=== PATIENT | male | born 1935 | race Caucasian/White ===

== ENCOUNTER 2017-09-15 11:26 | Emergency (ER) | payer MEDICARE, BC ==
[2017-09-15] MEDS ORDERED: DEXAMETHASONE 10 MG/ML VIAL PO STA (13:12)
--- NOTE | 2017-09-15 13:15 | ED Physician Documentation ---
PD HPI URI - Stated complaint Stated Complaint: CONGESTION - Chief complaint Chief Complaint: Resp - History obtained from History obtained from: Patient, Family - History of Present Illness Timing - onset: How many weeks ago (1) Timing duration: Weeks Timing details: Gradual onset, Still present Associated symptoms: Fever, Chills, Sweats, Nasal congestion, Rhinorrhea, Productive cough Improves by: Rest, Medication Worsened by: Activity Similar symptoms before: Diagnosis (pneumonia) Recently seen: Not recently seen - Additional information Additional information: 81-year-old male with a history of hepatocellular carcinoma recently treated with chemo and radiation and in remission has developed a cough and congestion. He is visiting to the area from [place] and expects to stay here until December. He has coughed up some yellow phlegm. He felt that he had the flu 1 week ago and felt ill. He felt that he was getting somewhat better a day or 2 ago and then worse again. He has begun to cough up some colored phlegm. Review of Systems Constitutional: reports: Fever, Chills, Myalgias, Fatigue Eyes: denies: Decreased vision Ears: denies: Ear pain Nose: reports: Rhinorrhea / runny nose, Congestion Throat: denies: Sore throat Cardiac: denies: Chest pain / pressure, Palpitations Respiratory: reports: Cough. denies: Dyspnea GI: denies: Abdominal Pain, Nausea, Vomiting : denies: Dysuria, Frequency PD PAST MEDICAL HISTORY - Past Medical History Past Medical History: Yes GI: Hepatitis, Other - Past Surgical History Past Surgical History: No - Present Medications Home Medications: Ambulatory Orders Medication Instructions Recorded Confirmed oxyCODONE [Roxicodone] 5 mg QID PRN 05/14/15 05/14/15 Azithromycin [Zithromax] 250 mg PO DAILY #6 tablet 09/15/17 Benzonatate [Tessalon] 100 - 200 mg PO TID PRN #20 capsule 09/15/17 - Allergies Allergies/Adverse Reactions: Allergies Allergy/AdvReac Type Severity Reaction Status Date / Time No Known Drug Allergies Allergy Verified 05/04/15 12:03 - Social History Does the pt smoke?: No Smoking Status: Never smoker Does the pt drink ETOH?: No Does the pt have substance abuse?: No - Immunizations Immunizations are current?: Yes - POLST Patient has POLST: No PD ED PE NORMAL - Vitals Vital signs reviewed: Yes (hypertensive ) - General General: Alert and oriented X 3, No acute distress, Well developed/nourished - HEENT HEENT: Atraumatic, PERRL, EOMI, Pharynx benign, Other (mild inflamation to the right TM. left is clear) - Neck Neck: Supple, no meningeal sign, No bony TTP - Cardiac Cardiac: RRR, No murmur - Respiratory Respiratory: No respiratory distress, Other (rhonchi in the left mid lung field) - Abdomen Abdomen: Soft, Non tender - Back Back: No CVA TTP, No spinal TTP - Derm Derm: Normal color, Warm and dry, No rash - Extremities Extremities: No deformity, No edema - Neuro Neuro: Alert and oriented X 3, No motor deficit, No sensory deficit, Normal speech Eye Opening: Spontaneous Motor: Obeys Commands Verbal: Oriented GCS Score: 15 - Psych Psych: Normal mood, Normal affect Results - Vitals Vitals: Vital Signs - 24 hr 09/15/17 09/15/17 11:41 13:14 Temperature 36.8 C Heart Rate 62 60 Respiratory 18 19 Rate Blood Pressure 144/62 H 143/72 H O2 Saturation 96 95 Oxygen O2 Source Room air - Rads (name of study) 2 view chest Radiology: Prelim report reviewed (Impression: No focal pneumonia. Mildly elevated right hemidiaphragm.), EMP read indepedently, See rad report Procedures - IVC sono (time) 1305 Bedside IVC sono: IVC measures (cm) (1.48), IVC collapsed c insp (cm) (0.2), Dehydration (mild) PD MEDICAL DECISION MAKING - ED course Complexity details: reviewed results, re-evaluated patient, considered differential, d/w patient, d/w family ED course: 81-year-old male with a bimodal illness appears to have improved from his initial URI and now is worse. On examination he does have right otitis. I suspect this is a secondary bacterial infection. He is administered dexamethasone orally and an x-ray of his chest is obtained with a prior history of pneumonia and rhonchi on exam. Departure - Departure Disposition: 01 Home, Self Care Clinical Impression: Otitis media Qualifiers: Otitis media type: suppurative Chronicity: acute Laterality: right Recurrence: not specified as recurrent Spontaneous tympanic membrane rupture: without spontaneous rupture Qualified Code(s): H66.001 - Acute suppurative otitis media without spontaneous rupture of ear drum, right ear Condition: Stable Instructions: ED Otitis Media Acute Adult Follow-Up: Your, doctor [Other] Prescriptions: Azithromycin [Zithromax] 250 mg PO DAILY #6 tablet Benzonatate [Tessalon] 100 - 200 mg PO TID PRN #20 capsule PRN Reason: Cough
[2017-09-15] MEDS ORDERED: CHERRY SYRUP 10 ML UDC PO ONE (13:22)
--- NOTE | 2017-09-15 13:35 | XRAY Report ---
EXAM: CHEST RADIOGRAPHY EXAM DATE: 09/15/2017 01:29 PM. CLINICAL HISTORY: Dry cough for one week COMPARISON: None. TECHNIQUE: 2 views. FINDINGS: Lungs/Pleura: The lungs are clear. There is elevation of the right diaphragm with right lung volume l oss. No pleural effusion or pneumothorax. Mediastinum: Previous aortic valve surgery noted. There is moderate calcification of the aortic arch. The heart size is normal. Other: Old right healed clavicle fracture noted. There are findings of previous right shoulder surger y. There are surgical clips in the right upper quadrant of the abdomen. IMPRESSION: No focal pneumonia. Mildly elevated right diaphragm. [facility] Referring Provider Line: [phone] SITE ID: [id number]
--- NOTE | 2017-09-15 13:35 | XRAY Preliminary Report ---
Exam: XR CHEST 2 VIEW X-RAY IMPRESSION: No focal pneumonia. Mildly elevated right diaphragm. [facility] SITE ID: [id number]
[2017-09-15 14:29] VITALS: BP 124/66
== END 2017-09-15 14:38 | disposition home or self-care (01) ==
LOC: ED 11:26
DX: H66.001 Acute suppurative otitis media without spontaneous rupture of ear drum, right ear (principal); Z85.05 Personal history of malignant neoplasm of liver; K75.9 Inflammatory liver disease, unspecified
CPT/HCPCS: 71046; 99283; A9270

== ENCOUNTER 2017-09-21 08:00 | Outpatient (CLI) | payer MEDICARE, BC ==
[2017-09-21 12:30] LABS: ALBUMIN 3.3 g/dL (3.2-5.5); ALBUMIN/GLOBULIN RATIO 1.1 (1.0-2.2); BILIRUBIN,TOTAL 1.6 mg/dL (0.2-1.0); CALCIUM 8.6 mg/dL (8.5-10.3); CREATININE 0.7 mg/dL (0.6-1.2); TOTAL PROTEIN 6.3 g/dL (6.7-8.2)
== END 2017-09-21 08:01 | disposition home or self-care (01) ==
LOC: LAB 08:00
PROVIDERS: ATTEND Family Medicine
DX: K74.69 Other cirrhosis of liver (principal)
CPT/HCPCS: 36415; 80053

== ENCOUNTER 2017-09-22 22:46 | Outpatient (CLI) | payer MEDICARE, BC | END 2017-09-22 22:47 | disposition critical access hospital (66) | LOC: EMS 22:46 | PROVIDERS: ATTEND Surgery | DX: R06.00 Dyspnea, unspecified (principal) | CPT/HCPCS: A0425; A0427 ==

== ENCOUNTER 2017-09-22 23:12 | Emergency (ER) | payer MEDICARE, BC ==
--- NOTE | 2017-09-22 23:36 | ED Physician Documentation ---
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 Despite this, he felt well until he later went into his house when he began to develop dyspnea, cough, chills, dizziness, felling "flush". 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 He was T+R from this ED earlier this month for very similar symptoms with same circumstances (breathed in fumes during a welding project). Review of Systems Constitutional: reports: Chills, Myalgias, Fatigue. denies: Fever Ears: reports: Reviewed and negative Cardiac: reports: Reviewed and negative Respiratory: reports: Dyspnea, Cough GI: reports: Abdominal Pain (RUQ). denies: Nausea, Vomiting : denies: Dysuria, Frequency PD PAST MEDICAL HISTORY - Past Medical History Past Medical History: Yes GI: Hepatitis, Other - Past Surgical History Past Surgical History: No - Present Medications Home Medications: Ambulatory Orders Medication Instructions Recorded Confirmed Aspirin [Aspirin EC] 81 mg PO DAILY 09/22/17 09/22/17 Lactulose 240 ml PO TID 09/22/17 09/22/17 Nadolol 20 mg PO DAILY 09/22/17 09/22/17 rifAXIMin [Xifaxan] 550 mg PO BID 09/22/17 09/22/17 Albuterol Sulf [Ventolin Hfa 1 - 2 puffs INH Q4HR PRN #1 inhaler 09/23/17 Inhaler] Amlodipine Besylate [Norvasc] 2.5 mg PO DAILY 09/23/17 09/23/17 - Allergies Allergies/Adverse Reactions: Allergies Allergy/AdvReac Type Severity Reaction Status Date / Time No Known Drug Allergies Allergy Verified 09/22/17 23:20 - Living Situation Living Arrangement: reports: At home - Social History Does the pt smoke?: No Smoking Status: Never smoker Does the pt drink ETOH?: No Does the pt have substance abuse?: No - Immunizations Immunizations are current?: Yes - POLST Patient has POLST: No PD ED PE NORMAL - Vitals Vital signs reviewed: Yes - General General: Alert and oriented X 3, No acute distress, Well developed/nourished - HEENT HEENT: Ears normal, Moist mucous membranes, Pharynx benign - Neck Neck: Supple, no meningeal sign - Cardiac Cardiac: RRR, No murmur, No gallop, No rub - Respiratory Respiratory: No respiratory distress, Clear bilaterally - Abdomen Abdomen: Soft, Non tender - Back Back: No CVA TTP - Derm Derm: Normal color, Warm and dry, No rash - Extremities Extremities: No edema - Neuro Neuro: Alert and oriented X 3 Results - Vitals Vitals: Vital Signs - 24 hr 09/22/17 09/23/17 09/23/17 23:12 02:05 02:40 Temperature 37.9 C H 37.5 C Heart Rate 113 H 84 87 Respiratory 20 16 21 Rate Blood Pressure 152/84 H 154/54 H O2 Saturation 96 96 Oxygen O2 Source Room air - EKG (time done) No standard instances Rate: Rate (enter#) (108) Rhythm: NSR [place]: LAD Intervals: Normal IA QRS: LVH Ischemia: Normal ST segments - Labs Labs: Laboratory Tests 09/23/17 09/23/17 09/23/17 00:10 00:10 00:10 WBC 11.1 H RBC 4.42 L Hgb 14.4 Hct 42.0 MCV 95.0 H MCH 32.6 H MCHC 34.3 RDW 14.3 Plt Count 54 L MPV 10.1 Neut # 9.4 H Lymph # 0.7 L [place] # 0.7 Eos # 0.3 Baso # 0.1 Absolute Nucleated RBC 0.01 Nucleated RBC % 0.1 Platelet Estimate DECREASED (<130,000) Platelet Morphology 1+ GIANT PLATELETS Sodium 137 Potassium 3.7 Chloride 107 Carbon Dioxide 15 L Anion Gap 15.0 H BUN 16 Creatinine 0.4 L Estimated GFR (MDRD) 208 Glucose 93 Calcium 8.8 Total Bilirubin 1.4 H AST 59 H ALT 44 Alkaline Phosphatase 116 B-Natriuretic Peptide 50 Total Protein 6.7 Albumin 3.3 Globulin 3.4 Albumin/Globulin Ratio 1.0 Lipase 52 H Influenza A (Rapid) Influenza B (Rapid) Influenza Types A,B Ag 09/23/17 00:30 WBC RBC Hgb Hct MCV MCH MCHC RDW Plt Count MPV Neut # Lymph # [place] # Eos # Baso # Absolute Nucleated RBC Nucleated RBC % Platelet Estimate Platelet Morphology Sodium Potassium Chloride Carbon Dioxide Anion Gap BUN Creatinine Estimated GFR (MDRD) Glucose Calcium Total Bilirubin AST ALT Alkaline Phosphatase B-Natriuretic Peptide Total Protein Albumin Globulin Albumin/Globulin Ratio Lipase Influenza A (Rapid) Negative Influenza B (Rapid) Negative Influenza Types A,B Ag - - Rads (name of study) chest xray Radiology: Prelim report reviewed, See rad report PD MEDICAL DECISION MAKING - ED course Complexity details: reviewed old records, reviewed results, re-evaluated patient , considered differential, d/w patient ED course: Patient reported modest improvement with albuterol neb (not clear if it helped much, but will rx albuterol he can try if symptoms recur). W/U is unremarkable for acute process, vital signs stable, NAD, speaks in full sentences and lungs are CTA bilaterally Departure - Departure Disposition: 01 Home, Self Care Clinical Impression: Upper respiratory tract infection Condition: Good Instructions: ED URI Viral Prescriptions: Albuterol Sulf [Ventolin Hfa Inhaler] 1 - 2 puffs INH Q4HR PRN #1 inhaler PRN Reason: Shortness Of Air/Wheezing Discharge Date/Time: 09/23/17 03:06
[2017-09-23 00:27] LABS: BASOPHILS # (AUTO) 0.1 10^3/uL (0.0-0.1); BASOPHILS % (AUTO) 1.2 %; EOSINOPHILS # (AUTO) 0.3 10^3/uL (0.0-0.7); EOSINOPHILS % (AUTO) 2.3 %; HGB - HEMOGLOBIN 14.4 g/dL (14.0-18.0); LYMPHOCYTES # (AUTO) 0.7 10^3/uL (1.5-3.5); LYMPHOCYTES % (AUTO) 5.9 %; MEAN CORPUSCULAR HEMOGLOBIN 32.6 pg (27.0-31.0); MEAN CORPUSCULAR HGB CONC 34.3 g/dL (32.0-36.0); MEAN PLATELET VOLUME 10.1 fL (7.4-11.4); MONOCYTES # (AUTO) 0.7 10^3/uL (0.0-1.0); MONOCYTES % (AUTO) 6.1 %; NEUTROPHILS # (AUTO) 9.4 10^3/uL (1.5-6.6); NEUTROPHILS % (AUTO) 84.5 %; PLT - PLATELET COUNT 54 10^3/uL (130-450); RED BLOOD COUNT 4.42 10^6/uL (4.70-6.10); RED CELL DISTRIBUTION WIDTH 14.3 % (12.0-15.0); WHITE BLOOD COUNT 11.1 x10^3/uL (4.8-10.8)
[2017-09-23 00:33] LABS: ALBUMIN 3.3 g/dL (3.2-5.5); BILIRUBIN,TOTAL 1.4 mg/dL (0.2-1.0); CALCIUM 8.8 mg/dL (8.5-10.3); CREATININE 0.4 mg/dL (0.6-1.2); TOTAL PROTEIN 6.7 g/dL (6.7-8.2)
[2017-09-23 00:44] LABS: PLATELET ESTIMATE, MANUAL DECREASED (<130,000) (NORMAL); PLATELET MORPHOLOGY 1+ GIANT PLATELETS (NORMAL)
--- NOTE | 2017-09-23 01:07 | XRAY Preliminary Report ---
Exam: XR CHEST 2 VIEW X-RAY IMPRESSION: Stable appearance of the chest without acute cardiopulmonary abnormality. [facility] SITE ID: [id number]
--- NOTE | 2017-09-23 01:09 | XRAY Report ---
EXAM: CHEST RADIOGRAPHY EXAM DATE: 09/23/2017 12:27 AM. CLINICAL HISTORY: Cough, dyspnea. COMPARISON: 09/15/2017. TECHNIQUE: 2 views. FINDINGS: Lungs/Pleura: No focal opacities evident. No pleural effusion. No pneumothorax. Normal volumes. Mediastinum: Cardiac silhouette is within normal limits when accounting for lung volumes and techniq ue. Aortic valve stent graft noted. Moderate calcific aortic atherosclerosis. Other: Medium-sized hiatal hernia. There is right hemidiaphragm eventration/elevation. Bone anchors n oted within the right humeral head. Moderate right shoulder degenerative change. Multiple right upper quadrant clips from prior partial hepatectomy. IMPRESSION: Stable appearance of the chest without acute cardiopulmonary abnormality. [facility] Referring Provider Line: [phone] SITE ID: [id number]
[2017-09-23] MEDS ORDERED: ALBUTEROL NEB 2.5 MG/3 ML INH STA (01:46)
[2017-09-23 02:41] VITALS: BP 154/54
== END 2017-09-23 03:06 | disposition home or self-care (01) ==
LOC: EDUNIT# → ED 23:12
DX: J06.9 Acute upper respiratory infection, unspecified (principal); R00.0 Tachycardia, unspecified; K75.9 Inflammatory liver disease, unspecified
CPT/HCPCS: 36415; 71046; 80053; 83690; 83880; 85025; 87275; 87276; 93005; 94640; 99283; 99284; J7613

== ENCOUNTER 2018-03-04 10:34 | Emergency (ER) | payer MEDICARE, BC ==
[2018-03-04] MEDS ORDERED: DEXAMETHASONE 10 MG/ML VIAL IVP STA (11:19)
[2018-03-04 13:03] VITALS: BP 126/71
--- NOTE | 2018-03-04 13:23 | ED Physician Documentation ---
PD HPI SKIN - Stated complaint Stated Complaint: ALLERGIC REACTION - Chief complaint Chief Complaint: Resp - History obtained from History obtained from: Patient - History of Present Illness Timing - onset: Yesterday Timing - details: Gradual onset Location: Face, RUE, LUE Quality / character: Itchy, Burning, Discolored, Swelling Associated symptoms: Facial swelling Contributing factors: Other (Exposed to kimberley and thistles.) Similar symptoms before: Has not had sx before Recently seen: Clinic (The patient was sent here from the [facility] and [place], where he had been given oral Benadryl.) - Additional information Additional information: The patient is an 82-year-old male who was chopping thistles and kimberley 2 days ago. He noticed swelling of his hands with associated itching yesterday, with increased swelling, including his face today, with associated redness. He denies cough, shortness of breath, headache, nausea or vomiting. He denies history of similar symptoms in the past. He was initially seen at the [facility] in [place], and was sent here for further evaluation and treatment. Review of Systems Constitutional: denies: Fever Eyes: denies: Irritation Nose: denies: Congestion Throat: denies: Sore throat Cardiac: denies: Chest pain / pressure Respiratory: denies: Dyspnea, Cough GI: denies: Abdominal Pain, Nausea, Vomiting : denies: Dysuria Skin: reports: Rash Musculoskeletal: reports: Extremity swelling (hands). denies: Neck pain, Back pain Neurologic: denies: Focal weakness, Numbness, Headache PD PAST MEDICAL HISTORY - Past Medical History Past Medical History: Yes Cardiovascular: Hypertension, High cholesterol, Coronary artery disease, [place] GI: Hepatitis, Other Other Past Medical History: liver CA with chemo/radiation 2014 - Past Surgical History Past Surgical History: Yes General: Liver surgery Ortho: Knee replacement, Shoulder arthroplasty, Carpal Tunnel surgery Cardiovascular: Coronary stent, Valve replacement HEENT: Cataracts, Detached retina repair - Present Medications Home Medications: Ambulatory Orders Medication Instructions Recorded Confirmed Aspirin [Aspirin EC] 81 mg PO DAILY 09/22/17 09/22/17 Lactulose 240 ml PO TID 09/22/17 09/22/17 Nadolol 20 mg PO DAILY 09/22/17 09/22/17 rifAXIMin [Xifaxan] 550 mg PO BID 09/22/17 09/22/17 Amlodipine Besylate [Norvasc] 2.5 mg PO DAILY 09/23/17 09/23/17 diphenhydrAMINE [Benadryl] 50 mg PO ONCE 03/04/18 03/04/18 predniSONE [Deltasone] 20 mg PO DAILY #10 tablet 03/04/18 - Allergies Allergies/Adverse Reactions: Allergies Allergy/AdvReac Type Severity Reaction Status Date / Time No Known Drug Allergies Allergy Verified 03/04/18 10:55 - Social History Does the pt smoke?: No Smoking Status: Never smoker Does the pt drink ETOH?: No Does the pt have substance abuse?: No - Immunizations Immunizations are current?: Yes - POLST Patient has POLST: No PD ED PE NORMAL - Vitals Vital signs reviewed: Yes (normal) - General General: Alert and oriented X 3, Well developed/nourished - HEENT HEENT: Atraumatic, EOMI, Ears normal, Moist mucous membranes, Pharynx benign, Other (There is generalized facial erythema and slight swelling.) - Neck Neck: Supple, no meningeal sign, No adenopathy, No JVD - Cardiac Cardiac: RRR - Respiratory Respiratory: No respiratory distress, Clear bilaterally - Abdomen Abdomen: Soft, Non tender - Back Back: No CVA TTP - Derm Derm: Other (Mild swelling of the hands bilaterally with slight erythema that extends up the forearms. There is no erythema, rash, or swelling of the lower extremities or the upper arms.) - Extremities Extremities: No tenderness to palpate, No calf tenderness / cord - Neuro Neuro: Alert and oriented X 3, No motor deficit, No sensory deficit Results - Vitals Vitals: Oxygen O2 Source Room air PD MEDICAL DECISION MAKING - ED course Complexity details: re-evaluated patient, considered differential, d/w patient, d/w family ED course: The patient's presentation is most consistent with localized reaction to kimberley. This does not appear to be a systemic allergic reaction, with no respiratory involvement. The only involved areas are the exposed areas of skin. Treatment in the emergency department included administration of dexamethasone 10 mg IV. The patient was observed in the emergency department for 2 hours over which time his symptoms improved. I discussed with him and his the expected course of illness, symptomatic treatment and outpatient follow-up, as well as potentially worrisome signs or symptoms that should prompt reevaluation in the emergency department. He is being discharged with prescription for prednisone. - Sepsis Event Vital Signs: Oxygen O2 Source Room air Departure - Departure Disposition: 01 Home, Self Care Clinical Impression: Allergic reaction Qualifiers: Encounter type: initial encounter Qualified Code(s): T78.40XA - Allergy, unspecified, initial encounter Condition: Stable Instructions: ED Allergic Reaction General Other Prescriptions: predniSONE [Deltasone] 20 mg PO DAILY #10 tablet Comments: Take prednisone daily as prescribed. You can use Benadryl, up to 50 mg 3 times daily if needed for itching. Follow up with your primary physician or return to the emergency department if you develop increasing swelling, itching, or shortness of breath despite the above medication. Discharge Date/Time: 03/04/18 13:42
== END 2018-03-04 13:42 | disposition home or self-care (01) ==
LOC: ED 10:34
DX: T78.40XA Allergy, unspecified, initial encounter (principal); X58.XXXA Exposure to other specified factors, initial encounter; I10 Essential (primary) hypertension; E78.00 Pure hypercholesterolemia, unspecified; I25.10 Atherosclerotic heart disease of native coronary artery without angina pectoris; I25.2 Old myocardial infarction; Z85.05 Personal history of malignant neoplasm of liver; Z79.82 Long term (current) use of aspirin
CPT/HCPCS: 96374; 99283

== ENCOUNTER 2018-11-01 10:50 | Outpatient (CLI) | payer MEDICARE, BC ==
[2018-11-01 11:18] LABS: CREATININE 0.6 mg/dL (0.6-1.2)
== END 2018-11-01 10:51 | disposition home or self-care (01) ==
LOC: LAB 10:50
DX: K74.69 Other cirrhosis of liver (principal); Z85.05 Personal history of malignant neoplasm of liver
CPT/HCPCS: 36415; 82565

== ENCOUNTER 2018-12-13 11:57 | Emergency (ER) | payer MEDICARE, BC ==
--- NOTE | 2018-12-13 14:19 | XRAY Report ---
Reason: fall. pain in ribs Procedure Date: 12/13/2018 Accession Number: [id number] / [id number] Procedure: XR - Ribs w/PA Chest RT CPT Code: FULL RESULT: EXAM: RIGHT RIB RADIOGRAPHY EXAM DATE: 12/13/2018 02:03 PM. CLINICAL HISTORY: Fall. Pain in ribs. COMPARISON: CHEST 2 VIEW 09/23/2017 12:13 AM CHEST 2 VIEW 09/15/2017 1:19 PM. TECHNIQUE: 1 view of the chest and 2 views of the ribs. FINDINGS: Bones: No displaced rib fracture appreciated. Lungs: No focal opacities. No pneumothorax. No pleural effusions. Mediastinum: Heart size, mediastinal and hilar contours are unchanged. Prior aortic valve repair. Moderate to large hiatal hernia again noted. Clips noted in the right upper quadrant from prior surgery. Stable focal eventration of the right hemidiaphragm. 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 IMPRESSION: No appreciable acute rib fractures. Stable exam findings as described above. [facility]
--- NOTE | 2018-12-13 14:38 | ED Physician Documentation ---
PD HPI TRUNK INJURY - Stated complaint Stated Complaint: RIB INJ - Chief complaint Chief Complaint: Trauma Ch/Bk - History obtained from History obtained from: Patient - History of Present Illness Location: Anterior chest, Right chest Type of injury: Fall Timing - onset: How many days ago (2) Timing - duration: Days (2) Timing - details: Abrupt onset, Still present Quality: Pain, Sharp, Similar to prior episodes Improved by: Rest, Immobilization Worsened by: Moving, Palpating Associated symtptoms: No: Weakness, Numbness, Tingling, Swelling, Discoloration, Feel faint, Syncope Contributing factors: No: Anticoagulated Where injury occured: Home Similar symptoms before: Diagnosis (rib fracture) Recently seen: Not recently seen - Additional information Additional information: 83-year-old male who is visiting here from [place] and has a place here on [address] [facility] was leading his horse when the horse bolted and pulled him over and he landed with his right elbow tucked into his chest. He is having some pain in the right anterior chest wall that is worse with inspiration and he was quite uncomfortable last night. Review of Systems Constitutional: denies: Fever Eyes: denies: Decreased vision Ears: denies: Ear pain Nose: denies: Congestion Throat: denies: Sore throat Cardiac: reports: Chest pain / pressure. denies: Palpitations, Pedal edema, Calf pain Respiratory: denies: Dyspnea, Cough, Wheezing GI: denies: Abdominal Pain, Nausea, Vomiting : denies: Dysuria, Frequency PD PAST MEDICAL HISTORY - Past Medical History Cardiovascular: Hypertension, High cholesterol, Coronary artery disease, [place] GI: Hepatitis, Other - Past Surgical History Past Surgical History: Yes General: Liver surgery Ortho: Knee replacement, Shoulder arthroplasty, Carpal Tunnel surgery Cardiovascular: Coronary stent, Valve replacement HEENT: Cataracts, Detached retina repair - Present Medications Home Medications: Ambulatory Orders Medication Instructions Recorded Confirmed Aspirin [Aspirin EC] 81 mg PO DAILY 09/22/17 09/22/17 Lactulose 240 ml PO TID 09/22/17 09/22/17 Nadolol 20 mg PO DAILY 09/22/17 09/22/17 rifAXIMin [Xifaxan] 550 mg PO BID 09/22/17 09/22/17 Amlodipine Besylate [Norvasc] 2.5 mg PO DAILY 09/23/17 09/23/17 diphenhydrAMINE [Benadryl] 50 mg PO ONCE 03/04/18 03/04/18 predniSONE [Deltasone] 20 mg PO DAILY #10 tablet 03/04/18 Oxycodone HCl/Acetaminophen 1 - 2 each PO Q6H PRN #20 tablet 12/13/18 [Percocet 5-325 mg Tablet] - Allergies Allergies/Adverse Reactions: Allergies Allergy/AdvReac Type Severity Reaction Status Date / Time No Known Drug Allergies Allergy Verified 12/13/18 12:38 - Social History Does the pt smoke?: No Smoking Status: Never smoker Does the pt drink ETOH?: No Does the pt have substance abuse?: No - Immunizations Immunizations are current?: Yes - POLST Patient has POLST: No PD ED PE NORMAL - Vitals Vital signs reviewed: Yes (normal ) - General General: Alert and oriented X 3, No acute distress, Well developed/nourished - HEENT HEENT: Atraumatic, PERRL, EOMI - Neck Neck: Supple, no meningeal sign, No bony TTP - Cardiac Cardiac: RRR, No murmur - Respiratory Respiratory: No respiratory distress, Clear bilaterally, Other (There is specific point tenderness to the right anterior chest wall without crepitance. ) - Abdomen Abdomen: Soft, Non tender - Back Back: No CVA TTP, No spinal TTP - Derm Derm: Normal color, Warm and dry, No rash - Extremities Extremities: No deformity, No edema - Neuro Neuro: Alert and oriented X 3, primary special education teacher 2-12 intact, No motor deficit, No sensory deficit, Normal speech Eye Opening: Spontaneous Motor: Obeys Commands Verbal: Oriented GCS Score: 15 - Psych Psych: Normal mood, Normal affect Results - Vitals Vitals: Vital Signs - 24 hr 12/13/18 12:36 Temperature 36.8 C Heart Rate 54 L Respiratory 18 Rate Blood Pressure 114/53 L O2 Saturation 97 Oxygen O2 Source Room air - Rads (name of study) PA chest and ribs Radiology: Prelim report reviewed (Impression: No appreciable acute rib fractures. Stable exam findings as described above.), EMP read indepedently, See rad report PD MEDICAL DECISION MAKING - ED course Complexity details: considered differential, d/w patient, d/w family ED course: 83-year-old male with a chest wall contusion has no evidence of fracture he is administered dexamethasone we will place him on some oxycodone. Departure - Departure Disposition: 01 Home, Self Care Clinical Impression: Chest wall contusion Qualifiers: Encounter type: initial encounter Laterality: right Qualified Code(s): S20.211A - Contusion of right front wall of thorax, initial encounter Condition: Stable Instructions: ED Contusion Vs Minor Fx Rib Follow-Up: PEÑA MILAN MD [Primary Care Provider] - Prescriptions: Oxycodone HCl/Acetaminophen [Percocet 5-325 mg Tablet] 1 - 2 each PO Q6H PRN #20 tablet PRN Reason: pain
[2018-12-13] MEDS ORDERED: DEXAMETHASONE 10 MG/ML VIAL PO STA (14:47)
[2018-12-13 15:04] VITALS: BP 127/67
== END 2018-12-13 15:06 | disposition home or self-care (01) ==
LOC: ED 11:57
DX: S20.211A Contusion of right front wall of thorax, initial encounter (principal); W55.12XA Struck by horse, initial encounter; W19.XXXA Unspecified fall, initial encounter; I10 Essential (primary) hypertension; I25.10 Atherosclerotic heart disease of native coronary artery without angina pectoris; I25.2 Old myocardial infarction; E78.00 Pure hypercholesterolemia, unspecified; K75.9 Inflammatory liver disease, unspecified; Z96.659 Presence of unspecified artificial knee joint; Z95.5 Presence of coronary angioplasty implant and graft; Z95.2 Presence of prosthetic heart valve; Z79.82 Long term (current) use of aspirin
CPT/HCPCS: 99283

== ENCOUNTER 2018-12-29 08:59 | Outpatient (CLI) | payer MEDICARE, BC ==
[2018-12-29 10:45] LABS: ALBUMIN 3.5 g/dL (3.2-5.5); ALBUMIN/GLOBULIN RATIO 1.1 (1.0-2.2); ALKALINE PHOSPHATASE 112 IU/L (42-121); ALT ALANINE AMINOTRANSFERASE 31 IU/L (10-60); AST ASPARTATE AMINOTRANSFERASE 40 IU/L (10-42); BILIRUBIN,TOTAL 1.1 mg/dL (0.2-1.0); BUN - BLOOD UREA NITROGEN 18 mg/dL (6-20); CALCIUM 9.6 mg/dL (8.5-10.3); CARBON DIOXIDE - CO2 25 mmol/L (21-32); CHLORIDE 108 mmol/L (101-111); CHOL/HDL RATIO 4.5 (<5.0); CHOLESTEROL 232 mg/dL; CREATININE 0.7 mg/dL (0.6-1.2); GFR - MDRD 108 (>89); GLUCOSE 97 mg/dL (70-100); HDL CHOLESTEROL 52 mg/dL; LDL CHOLESTEROL,CALCULATED 166 mg/dL; LDL/HDL RATIO 3.2 (<3.6); SODIUM 141 mmol/L (135-145); TOTAL PROTEIN 6.7 g/dL (6.7-8.2); VLDL CHOLESTEROL 14 mg/dL
== END 2018-12-29 09:00 | disposition home or self-care (01) ==
LOC: LAB.F 08:59
PROVIDERS: ATTEND Internal Medicine Cardiovascular Disease
DX: E78.2 Mixed hyperlipidemia (principal); I10 Essential (primary) hypertension
CPT/HCPCS: 36415; 80053; 80061; 83721

== ENCOUNTER 2019-03-30 11:26 | Emergency (ER) | payer MEDICARE, BC ==
[2019-03-30] MEDS ORDERED: predniSONE 20 MG TABLET PO STA (12:35)
[2019-03-30] MEDS ORDERED: diphenhydrAMINE 25 MG CAPSULE PO STA (12:36)
--- NOTE | 2019-03-30 12:57 | ED Physician Documentation ---
History of Present Illness - Stated complaint Stated Complaint: BEE STING - Chief complaint Chief Complaint: Allergic Rx - History obtained from History obtained from: Patient, Family - History of Present Illness Timing: Today Pain level max: 0 Pain level now: 0 - Additonal information Additional information: 83-year-old male stung by a wasp on the left flank. States his arm started to swell and he uses epinephrine pen. No difficulty breathing. No throat swelling. Now feels slightly lightheaded. Has not taken any Benadryl. No steroids. Has had similar reactions in the past. This occurred approximately 2 hours ago. Better with the EpiPen. Nothing makes it worse. Review of Systems Constitutional: denies: Fever, Chills GI: denies: Vomiting Skin: denies: Rash Musculoskeletal: denies: Neck pain, Back pain Neurologic: denies: Headache PD PAST MEDICAL HISTORY - Past Medical History Cardiovascular: Hypertension, High cholesterol, Coronary artery disease, [place] GI: Hepatitis, Other - Past Surgical History Past Surgical History: Yes General: Liver surgery Ortho: Knee replacement, Shoulder arthroplasty, Carpal Tunnel surgery Cardiovascular: Coronary stent, Valve replacement HEENT: Cataracts, Detached retina repair - Present Medications Home Medications: Ambulatory Orders Medication Instructions Recorded Confirmed Aspirin [Aspirin EC] 81 mg PO DAILY 09/22/17 09/22/17 Lactulose 240 ml PO TID 09/22/17 09/22/17 Nadolol 20 mg PO DAILY 09/22/17 09/22/17 rifAXIMin [Xifaxan] 550 mg PO BID 09/22/17 09/22/17 Amlodipine Besylate [Norvasc] 2.5 mg PO DAILY 09/23/17 09/23/17 diphenhydrAMINE [Benadryl] 50 mg PO ONCE 03/04/18 03/04/18 predniSONE [Deltasone] 20 mg PO DAILY #10 tablet 03/04/18 Oxycodone HCl/Acetaminophen 1 - 2 each PO Q6H PRN #20 tablet 12/13/18 [Percocet 5-325 mg Tablet] EPINEPHrine [Epinephrine] 0.3 mg IJ ONCE PRN #1 auto.injct 03/30/19 predniSONE [Prednisone] 20 mg PO DAILY #3 tablet 03/30/19 - Allergies Allergies/Adverse Reactions: Allergies Allergy/AdvReac Type Severity Reaction Status Date / Time Wasp Allergy Anaphylaxis Uncoded 03/30/19 11:41 - Social History Does the pt smoke?: No Smoking Status: Never smoker Does the pt drink ETOH?: No Does the pt have substance abuse?: No - Immunizations Immunizations are current?: Yes - POLST Patient has POLST: No PD ED PE NORMAL - Vitals Vital signs reviewed: Yes - General General: Alert and oriented X 3, No acute distress - HEENT HEENT: Moist mucous membranes, Pharynx benign - Neck Neck: Supple, no meningeal sign - Cardiac Cardiac: RRR - Respiratory Respiratory: No respiratory distress, Clear bilaterally, Other (No stridor. No wheezing) - Abdomen Abdomen: Soft, Non tender, Non distended, Other (Localized allergic reaction to the left flank, approximately 20 x 15 cm erythematous area.) - Derm Derm: Warm and dry - Neuro Neuro: Alert and oriented X 3 Results - Vitals Vitals: Vital Signs - 24 hr 03/30/19 03/30/19 03/30/19 11:37 12:00 13:20 Temperature 36.9 C 36.2 C L Heart Rate 56 L 56 L 53 L Respiratory 18 16 20 Rate Blood Pressure 154/119 H 112/64 126/59 L O2 Saturation 95 96 95 Oxygen O2 Source Room air PD MEDICAL DECISION MAKING - ED course Complexity details: re-evaluated patient, considered differential, d/w patient ED course: Patient with significant localized allergic reaction to a wasp sting. Will refill his EpiPen for him. Will place on steroids for home. No evidence of anaphylaxis. Patient and family counseled regarding signs and symptoms for which I believe and urgent re-evaluation would be necessary. Patient with good understanding of and agreement to plan and is comfortable going home at this time This document was made in part using voice recognition software. While efforts are made to proofread this document, sound alike and grammatical errors may occur. Departure - Departure Disposition: 01 Home, Self Care Clinical Impression: Wasp sting Qualifiers: Encounter type: initial encounter Injury intent: undetermined intent Qualified Code(s): T63.464A - Toxic effect of venom of wasps, undetermined, initial encounter Condition: Good Instructions: ED Bite Sting Insect Gen Allergic React Follow-Up: PEÑA MILAN MD [Primary Care Provider] - Within 3 Days Prescriptions: EPINEPHrine [Epinephrine] 0.3 mg IJ ONCE PRN #1 auto.injct PRN Reason: Anaphylaxis predniSONE [Prednisone] 20 mg PO DAILY #3 tablet Comments: If you need to use the epinephrine pen, you still need to be seen at the nearest emergency department. You can also use Benadryl for itching. Return if you worsen. Follow up with your doctor for further care. Discharge Date/Time: 03/30/19 13:20
[2019-03-30 13:20] VITALS: BP 126/59
== END 2019-03-30 13:20 | disposition home or self-care (01) ==
LOC: ED 11:26
DX: T63.461A Toxic effect of venom of wasps, accidental (unintentional), initial encounter (principal); M79.89 Other specified soft tissue disorders; I10 Essential (primary) hypertension
CPT/HCPCS: 99282; 99284; A9270; J7512

== ENCOUNTER 2019-08-08 07:00 | Outpatient (CLI) | payer MEDICARE, BC | END 2019-08-08 23:59 | disposition home or self-care (01) | LOC: LAB.R 07:00 | PROVIDERS: ATTEND Registered Nurse | DX: Z01.812 Encounter for preprocedural laboratory examination (principal) | CPT/HCPCS: 87640 ==

== ENCOUNTER 2019-08-08 15:14 | Outpatient (CLI) | payer MEDICARE, BC ==
[2019-08-08 17:43] LABS: BASOPHILS % (AUTO) 0.7 %; EOSINOPHILS # (AUTO) 0.3 10^3/uL (0.0-0.7); EOSINOPHILS % (AUTO) 6.6 %; HGB - HEMOGLOBIN 16.3 g/dL (14.0-18.0); LYMPHOCYTES # (AUTO) 1.4 10^3/uL (1.5-3.5); LYMPHOCYTES % (AUTO) 30.3 %; MEAN CORPUSCULAR HEMOGLOBIN 31.7 pg (27.0-31.0); MEAN CORPUSCULAR HGB CONC 33.5 g/dL (32.0-36.0); MEAN CORPUSCULAR VOLUME 94.6 fL (80.0-94.0); MEAN PLATELET VOLUME 12.8 fL (7.4-11.4); MONOCYTES # (AUTO) 0.6 10^3/uL (0.0-1.0); NEUTROPHILS # (AUTO) 2.3 10^3/uL (1.5-6.6); NEUTROPHILS % (AUTO) 50.2 %; PLT - PLATELET COUNT 72 10^3/uL (130-450); RED BLOOD COUNT 5.15 10^6/uL (4.70-6.10); RED CELL DISTRIBUTION WIDTH 13.7 % (12.0-15.0); WHITE BLOOD COUNT 4.6 x10^3/uL (4.8-10.8)
[2019-08-08 17:47] LABS: INR 1.2 (0.8-1.2); PT - PROTHROMBIN TIME 13.2 secs (9.9-12.6)
[2019-08-08 18:29] LABS: ALBUMIN 3.8 g/dL (3.2-5.5); BILIRUBIN,TOTAL 1.4 mg/dL (0.2-1.0); CALCIUM 9.4 mg/dL (8.5-10.3); CREATININE 0.7 mg/dL (0.6-1.2); TOTAL PROTEIN 7.8 g/dL (6.7-8.2)
== END 2019-08-08 15:15 | disposition home or self-care (01) ==
LOC: LAB.S 15:14
PROVIDERS: ATTEND Registered Nurse
DX: Z01.818 Encounter for other preprocedural examination (principal); B18.2 Chronic viral hepatitis C
CPT/HCPCS: 36415; 80053; 85025; 85610; 85730

== ENCOUNTER 2019-09-20 07:27 | Outpatient (CLI) | payer MEDICARE, BC | END 2019-09-20 07:28 | disposition critical access hospital (66) | LOC: EMS 07:27 | PROVIDERS: ATTEND Surgery | DX: R42 Dizziness and giddiness (principal) | CPT/HCPCS: A0425; A0429 ==

== ENCOUNTER 2019-09-20 07:53 | Emergency (ER) | payer MEDICARE, BC ==
--- NOTE | 2019-09-20 08:09 | ED Physician Documentation ---
PD HPI SYNCOPE - Stated complaint Stated Complaint: SYNCOPE - Chief complaint Chief Complaint: Neuro - History obtained from History obtained from: Patient - History of Present Illness Witnessed: Unwitnessed Timing - onset: How many hours ago (1) Duration: Seconds Preceding symptoms: Light headed, Generalized weakness. No: Chest pain, Dyspnea, Abdominal pain Associated symptoms: No: Incontinant of urine, Chest pain, Palpitations Contributing factors: Decreased PO intake (He says he had not been having much appetite for the last 2 or 3 days and had less intake), Just stood up (He had gotten up from sleeping on the sofa and felt a little bit lightheaded standing up but had to go to the bathroom so used urinal to urinate and had just finished and states he felt even more lightheaded and then awoke on the couch. He denies injury. He denied chest pain dyspnea headache or abdominal pain.). No: Recent med change Injury occurred: No: Fell (He landed back onto his sofa with a lot of blankets and pillows so felt it was a soft landing), Head injury, Neck injury Treatment CNC MACHINE SETTER: Fluids Similar symptoms before: Has not had sx before Recently seen: Clinic (Just seen by his orthopedist last week status post knee replacement 3 weeks ago. He has been healing well and has been ambulatory though a little stiff. He has been sleeping on his sofa mostly for comfort.) Review of Systems Constitutional: reports: Fatigue. denies: Fever, Chills, Myalgias Nose: denies: Rhinorrhea / runny nose, Congestion Throat: denies: Sore throat Cardiac: reports: Pedal edema (mild since knee surgery; decreasing overall.). denies: Chest pain / pressure, Palpitations Respiratory: denies: Dyspnea, Cough GI: denies: Abdominal Pain, Nausea, Vomiting, Diarrhea : denies: Dysuria, Frequency Skin: denies: Rash Musculoskeletal: reports: Extremity pain (He has been having decreasing pain in the right knee since his surgery and has been feeling better with it. He has not had any drainage or discharge. He has slight redness and warmth of it that has been since the surgery and they were doing ice packs often) PD PAST MEDICAL HISTORY - Past Medical History Cardiovascular: Hypertension, High cholesterol, Coronary artery disease, [place] GI: Hepatitis, Other - Past Surgical History Past Surgical History: Yes General: Liver surgery Ortho: Knee replacement, Shoulder arthroplasty, Carpal Tunnel surgery Cardiovascular: Coronary stent (4 years ago), Valve replacement (3 years ago) HEENT: Cataracts, Detached retina repair - Present Medications Home Medications: Ambulatory Orders Medication Instructions Recorded Confirmed Aspirin [Aspirin EC] 81 mg PO DAILY 09/22/17 09/22/17 Lactulose 240 ml PO TID 09/22/17 09/22/17 nadoloL [Nadolol] 20 mg PO DAILY 09/22/17 09/22/17 rifAXIMin [Xifaxan] 550 mg PO BID 09/22/17 09/22/17 Amlodipine Besylate [Norvasc] 2.5 mg PO DAILY 09/23/17 09/23/17 diphenhydrAMINE [Benadryl] 50 mg PO ONCE 03/04/18 03/04/18 predniSONE [Deltasone] 20 mg PO DAILY #10 tablet 03/04/18 Oxycodone HCl/Acetaminophen 1 - 2 each PO Q6H PRN #20 tablet 12/13/18 [Percocet 5-325 mg Tablet] EPINEPHrine [Epinephrine] 0.3 mg IJ ONCE PRN #1 auto.injct 03/30/19 predniSONE [Prednisone] 20 mg PO DAILY #3 tablet 03/30/19 - Allergies Allergies/Adverse Reactions: Allergies Allergy/AdvReac Type Severity Reaction Status Date / Time Wasp Allergy Anaphylaxis Uncoded 09/20/19 07:57 - Social History Does the pt smoke?: No Smoking Status: Never smoker Does the pt drink ETOH?: No Does the pt have substance abuse?: No - Immunizations Immunizations are current?: Yes - POLST Patient has POLST: No PD ED PE NORMAL - Vitals Vital signs reviewed: Yes - General General: Alert and oriented X 3, No acute distress, Well developed/nourished - HEENT HEENT: Atraumatic, Moist mucous membranes, Pharynx benign - Neck Neck: Supple, no meningeal sign, No adenopathy - Cardiac Cardiac: RRR, No murmur - Respiratory Respiratory: Clear bilaterally - Abdomen Abdomen: Normal bowel sounds, Soft, Non tender - Back Back: No CVA TTP, No spinal TTP - Derm Derm: Normal color, Warm and dry - Extremities Extremities: Other (The anterior right knee has a healing surgical scar with some slight warmth and redness around it but very light redness. There is no purulent discharge. There is no effusion. There is mild swelling around the ankle and mild calf tenderness on that side. The left leg is good.) Results - Vitals Vitals: Vital Signs - 24 hr 09/20/19 09/20/19 09/20/19 07:58 08:07 09:02 Temperature 36.7 C Heart Rate 69 72 68 Heart Rate [ Sitting] Heart Rate [ Standing] Heart Rate [ Supine] Respiratory 18 20 14 Rate Blood Pressure 140/71 H 130/71 129/62 Blood Pressure [Sitting] Blood Pressure [Standing] Blood Pressure [Supine] O2 Saturation 100 99 96 09/20/19 11:06 Temperature Heart Rate Heart Rate [ 73 Sitting] Heart Rate [ 79 Standing] Heart Rate [ 69 Supine] Respiratory Rate Blood Pressure Blood Pressure 138/79 H [Sitting] Blood Pressure 138/77 H [Standing] Blood Pressure 134/69 H [Supine] O2 Saturation Oxygen O2 Source Room air - EKG (time done) 07:53 Rate: Rate (enter#) (67) Rhythm: NSR Intervals: Wide QRS, LBBB QRS: Normal Ischemia: ST elevation c/w repol. No: ST elevation c/w ischemia, ST depression Compare to prior EKG: Unchanged from prior EKG - Labs Labs: Laboratory Tests 09/20/19 09/20/19 09/20/19 08:42 08:42 08:42 WBC 5.1 RBC 3.87 L Hgb 12.7 L Hct 36.6 L MCV 94.6 H MCH 32.8 H MCHC 34.7 RDW 14.0 Plt Count 93 L MPV 10.8 Neut # (Auto) 3.0 Lymph # (Auto) 1.1 L [place] # (Auto) 0.7 Eos # (Auto) 0.4 Baso # (Auto) 0.1 Absolute Nucleated RBC 0.00 Nucleated RBC % 0.0 Sodium 137 Potassium 3.7 Chloride 105 Carbon Dioxide 25 Anion Gap 7.0 BUN 16 Creatinine 0.6 Estimated GFR (MDRD) 129 Glucose 91 Calcium 8.9 Magnesium 1.8 Total Bilirubin 1.1 H AST 30 ALT 18 Alkaline Phosphatase 88 Ammonia 23.9 Troponin I High Sens B-Natriuretic Peptide Total Protein 6.3 L Albumin 3.2 Globulin 3.1 Albumin/Globulin Ratio 1.0 Lipase 46 09/20/19 09/20/19 08:42 08:42 WBC RBC Hgb Hct MCV MCH MCHC RDW Plt Count MPV Neut # (Auto) Lymph # (Auto) [place] # (Auto) Eos # (Auto) Baso # (Auto) Absolute Nucleated RBC Nucleated RBC % Sodium Potassium Chloride Carbon Dioxide Anion Gap BUN Creatinine Estimated GFR (MDRD) Glucose Calcium Magnesium Total Bilirubin AST ALT Alkaline Phosphatase Ammonia Troponin I High Sens 11.3 B-Natriuretic Peptide 85 Total Protein Albumin Globulin Albumin/Globulin Ratio Lipase - Rads (name of study) duplex right leg U/S Radiology: Prelim report reviewed, See rad report PD MEDICAL DECISION MAKING - ED course Complexity details: reviewed results, considered differential (sounds like underhydration and postural/micturation syncope. ), d/w patient Departure - Departure Disposition: 01 Home, Self Care Clinical Impression: Postural syncope, Dehydration Condition: Stable Record reviewed to determine appropriate education?: Yes Instructions: ED Syncope Vasovagal Comments: Continue usual medications. Stay well-hydrated and regular meals. There is no signs of more significant cause for your fainting so I presume it was a combination of under hydration and the getting up and going to the bathroom that led to a transient drop in your blood pressure. Discharge Date/Time: 09/20/19 11:25
[2019-09-20] MEDS ORDERED: SODIUM CHLORIDE 0.9% 1,000 ML IV ONE (08:29)
[2019-09-20 08:49] LABS: BASOPHILS # (AUTO) 0.1 10^3/uL (0.0-0.1); EOSINOPHILS # (AUTO) 0.4 10^3/uL (0.0-0.7); EOSINOPHILS % (AUTO) 6.8 %; HGB - HEMOGLOBIN 12.7 g/dL (14.0-18.0); LYMPHOCYTES # (AUTO) 1.1 10^3/uL (1.5-3.5); LYMPHOCYTES % (AUTO) 21.6 %; MEAN CORPUSCULAR HEMOGLOBIN 32.8 pg (27.0-31.0); MEAN CORPUSCULAR HGB CONC 34.7 g/dL (32.0-36.0); MEAN CORPUSCULAR VOLUME 94.6 fL (80.0-94.0); MEAN PLATELET VOLUME 10.8 fL (7.4-11.4); MONOCYTES # (AUTO) 0.7 10^3/uL (0.0-1.0); MONOCYTES % (AUTO) 12.6 %; PLT - PLATELET COUNT 93 10^3/uL (130-450); RED BLOOD COUNT 3.87 10^6/uL (4.70-6.10); WHITE BLOOD COUNT 5.1 x10^3/uL (4.8-10.8)
[2019-09-20 09:00] LABS: ALBUMIN 3.2 g/dL (3.2-5.5); BILIRUBIN,TOTAL 1.1 mg/dL (0.2-1.0); CALCIUM 8.9 mg/dL (8.5-10.3); CREATININE 0.6 mg/dL (0.6-1.2); MAGNESIUM 1.8 mg/dL (1.7-2.8); TOTAL PROTEIN 6.3 g/dL (6.7-8.2)
--- NOTE | 2019-09-20 09:30 | Ultrasound Report ---
Reason: calf pain; syncope; recent knee replacement Procedure Date: 09/20/2019 Accession Number: [id number] / [id number] Procedure: US - Duplex Ext Veins Right CPT Code: Final Report FULL RESULT: EXAM: RIGHT LOWER EXTREMITY VENOUS ULTRASOUND EXAM DATE: 09/20/2019 09:20 AM. CLINICAL HISTORY: Calf pain; syncope; recent knee replacement. COMPARISON: None. TECHNIQUE: Real-time sonographic vascular imaging was performed by the senior drupal developer through the lower extremity utilizing both color-flow and Doppler spectral analysis. Multiple dealer compliance representative static images were saved for review. FINDINGS: Common Femoral Vein (CFV): Normal. CFV-GSV Junction: Normal. Profunda Femoral Vein (PFV): Normal. Femoral Vein (FV) Prox: Normal. Femoral Vein (FV) Mid: Normal. Femoral Vein (FV) Dist: Normal. Popliteal Vein: Normal. Posterior Tibial Veins: Normal. Peroneal Veins: Normal. Contralateral Side CFV: Normal. Other: None. IMPRESSION: No evidence for deep venous thrombosis. RADIA
[2019-09-20 11:13] VITALS: BP 134/69
== END 2019-09-20 11:25 | disposition home or self-care (01) ==
LOC: EDBD → EDUNIT# → ED 07:53
DX: R55 Syncope and collapse (principal); E86.0 Dehydration; I10 Essential (primary) hypertension
CPT/HCPCS: 36415; 80053; 82140; 83690; 83735; 83880; 84484; 85025; 93005; 99284

== ENCOUNTER 2020-07-04 11:33 | Outpatient (CLI) | payer MEDICARE, BC | END 2020-07-04 11:34 | disposition home or self-care (01) | LOC: COV 11:33 | PROVIDERS: ATTEND Internal Medicine Hepatology | DX: Z01.812 Encounter for preprocedural laboratory examination (principal); Z20.828 Contact with and (suspected) exposure to other viral communicable diseases ==

== ENCOUNTER 2020-09-06 12:06 | Outpatient (CLI) | payer MEDICARE, BC ==
[2020-09-06] MEDS ORDERED: GADOXETATE DISODIUM 2.5 MMOL/10 ML VIAL ONE (12:27)
[2020-09-06] MEDS ORDERED: GADOXETATE DISODIUM 2.5 MMOL/10 ML VIAL IVP ONE ×2 (13:40→14:18)
--- NOTE | 2020-09-12 13:33 | MRI Report ---
PROCEDURE: Abdomen W/WO INDICATIONS: HEPATIC CIRRHOSIS, HX HEPATOCULLULAR CA CONTRAST: IV CONTRAST: Eovist ml: 4 TECHNIQUE: Coronal ultra fast SE, axial 2D spoiled GE in- and [id number]; axial breath-hold T2 fast SE. Dynam ic axial ultra fast GE during the administration of contrast; post-contrast coronal ultra fast GE or 2D spoiled GE with fat saturation from the hepatic dome to the iliac crests. Optional diffusion weig hted imaging and ADC may be performed. COMPARISON: Report from outside MRI dated 11/03/2018 from [facility]. FINDINGS: Image quality: There is motion artifact limiting evaluation. Lung bases: No basal pleural effusions. Heart size is normal. Solid organs: There are postsurgical changes consistent with prior right hepatectomy. Along the infer ior aspect of the left hepatic lobe tracking between segments 3 and 4B, there is a loculated elongate d heterogeneous collection measuring approximately 8.4 x 2.6 cm in transverse dimension by approximat stephon 3.8 cm in craniocaudal dimension. This demonstrates intrinsic T1 hyperintensity internally withou t definite enhancement following contrast demonstration. There is also internal T2 hypointensity. No associated restricted diffusion. No discrete new hepatic mass or suspicious enhancement identified. N o discrete areas of abnormal washout. Biliary system is non dilated. Pancreas is normal in morphology. No adrenal nodules. Both kidneys demonstrate normal size and enhancement, without hydronephrosis. Nodes and vessels: No retroperitoneal or mesenteric adenopathy by size criteria. Aorta and inferior vena cava are normal in size. Multiple prominent esophageal varices are present. Bowel and peritoneum: Visualized bowel loops are normal in caliber. No free fluid. Bones and soft tissues: No ventral hernias. Bone marrow is normal in overall signal. IMPRESSION: 1. Postsurgical changes demonstrated status post right hepatectomy. No definite evidence of recurrent disease. 2. Heterogeneous collection demonstrated inferior to the left hepatic lobe likely represents sequelae of prior surgery such as a prior hematoma. Findings appear similar in size to outside report. An add endum will be performed when outside images are made available for comparison. 3. Prominent gastroesophageal varices. Reviewed by: Fredi Denton MD on 09/12/2020 1:31 PM PST Approved by: Fredi Denton MD on 09/12/2020 1:31 PM PST Station ID: [id number]
== END 2020-09-06 12:07 | disposition home or self-care (01) ==
LOC: DI 12:06
PROVIDERS: ATTEND Internal Medicine Hepatology
DX: K74.60 Unspecified cirrhosis of liver (principal); Z85.05 Personal history of malignant neoplasm of liver; I85.00 Esophageal varices without bleeding
CPT/HCPCS: 74183

== ENCOUNTER 2020-11-20 10:19 | Outpatient (CLI) | payer MEDICARE, BC ==
[2020-11-20 14:27] LABS: INR 1.2 (0.8-1.2); PT - PROTHROMBIN TIME 13.1 secs (9.9-12.6)
[2020-11-20 15:11] LABS: EOSINOPHILS # (AUTO) 0.2 10^3/uL (0.0-0.7); EOSINOPHILS % (AUTO) 5.6 %; HCT - HEMATOCRIT 45.9 % (42.0-52.0); HGB - HEMOGLOBIN 15.4 g/dL (14.0-18.0); LYMPHOCYTES # (AUTO) 1.1 10^3/uL (1.5-3.5); LYMPHOCYTES % (AUTO) 27.9 %; MEAN CORPUSCULAR HEMOGLOBIN 32.2 pg (27.0-31.0); MEAN CORPUSCULAR HGB CONC 33.6 g/dL (32.0-36.0); MEAN CORPUSCULAR VOLUME 95.8 fL (80.0-94.0); MEAN PLATELET VOLUME 12.6 fL (7.4-11.4); MONOCYTES # (AUTO) 0.4 10^3/uL (0.0-1.0); MONOCYTES % (AUTO) 11.2 %; NEUTROPHILS # (AUTO) 2.1 10^3/uL (1.5-6.6); PLT - PLATELET COUNT 63 10^3/uL (130-450); RED BLOOD COUNT 4.79 10^6/uL (4.70-6.10); RED CELL DISTRIBUTION WIDTH 14.1 % (12.0-15.0); WHITE BLOOD COUNT 3.9 x10^3/uL (4.8-10.8)
[2020-11-20 15:28] LABS: ALBUMIN 3.6 g/dL (3.2-5.5); ALBUMIN/GLOBULIN RATIO 1.2 (1.0-2.2); BILIRUBIN,TOTAL 1.3 mg/dL (0.2-1.0); CALCIUM 9.8 mg/dL (8.5-10.3); CREATININE 0.8 mg/dL (0.6-1.2); POTASSIUM 4.8 mmol/L (3.5-5.0); TOTAL PROTEIN 6.6 g/dL (6.7-8.2)
== END 2020-11-20 10:20 | disposition home or self-care (01) ==
LOC: LAB.S 10:19
PROVIDERS: ATTEND Internal Medicine Hepatology
DX: K74.60 Unspecified cirrhosis of liver (principal); Z85.05 Personal history of malignant neoplasm of liver
CPT/HCPCS: 36415; 80053; 82105; 85025; 85610

== ENCOUNTER 2021-03-26 08:54 | Outpatient (CLI) | payer MEDICARE, BC ==
[2021-03-26] MEDS ORDERED: GADOBUTROL 10 MMOL/10 ML VIAL ONE (09:24)
[2021-03-26 09:50] LABS: CREATININE 0.8 mg/dL (0.6-1.2)
[2021-03-26] MEDS ORDERED: GADOBUTROL 10 MMOL/10 ML VIAL IVP ONE (10:35)
--- NOTE | 2021-03-26 14:14 | MRI Report ---
PROCEDURE: Abdomen W/WO INDICATIONS: HX HEPATOCELLULAR CA, HEPATIC CIRRHOSIS CONTRAST: IV CONTRAST: ml: 7.3 TECHNIQUE: Coronal ultra fast SE, axial 2D spoiled GE in- and [id number]; axial breath-hold T2 fast SE. Dynam ic axial ultra fast GE during the administration of contrast; post-contrast coronal ultra fast GE or 2D spoiled GE with fat saturation from the hepatic dome to the iliac crests. Optional diffusion weig hted imaging and ADC may be performed. COMPARISON: MRI abdomen 09/06/2020, CT abdomen 05/04/2015 FINDINGS: Image quality: There is motion artifact limiting evaluation. Lung bases: No basal pleural effusions. Heart size is enlarged. Solid organs: The liver is nodular in contour consistent with cirrhosis. Postsurgical changes are red emonstrated status post partial right hepatectomy. There is also a loculated collection inferior to t he left hepatic lobe compatible with sequelae of prior radiofrequency ablation appears similar to the prior studies. No discrete hepatic mass, abnormal enhancement, or suspicious areas of washout identi fied to suggest recurrent hepatocellular carcinoma. Biliary system is non dilated. Pancreas demonstrates no discrete mass. No pancreatic duct dilatation . No adrenal nodules. Kidneys demonstrate no hydronephrosis. The spleen is at the upper limits of nor mal in size. Nodes and vessels: No retroperitoneal or mesenteric adenopathy by size criteria. Aorta and inferior vena cava are normal in size. There are large gastroesophageal varices redemonstrated. Bowel and peritoneum: Visualized bowel loops are normal in caliber. No free fluid. Bones and soft tissues: No ventral hernias. Bone marrow is normal in overall signal. IMPRESSION: 1. No definite evidence of recurrent hepatocellular carcinoma. 2. Nodular cirrhotic liver with postsurgical changes status post partial right hepatectomy and post R FA changes along the inferior left hepatic lobe redemonstrated. 3. Large gastroesophageal varices redemonstrated consistent with portal hypertension. Reviewed by: Fredi Denton MD on 03/26/2021 2:12 PM PDT Approved by: Fredi Denton MD on 03/26/2021 2:12 PM PDT Station ID: [id number]
== END 2021-03-26 08:55 | disposition home or self-care (01) ==
LOC: LAB 08:54 → DI 08:55
PROVIDERS: ATTEND Internal Medicine Hepatology
DX: K74.60 Unspecified cirrhosis of liver (principal); Z85.05 Personal history of malignant neoplasm of liver; K76.6 Portal hypertension; I85.10 Secondary esophageal varices without bleeding
CPT/HCPCS: 36415; 74183; 82565; A9585

== ENCOUNTER 2021-07-01 11:29 | Outpatient (CLI) | payer MEDICARE, BC ==
[2021-07-01 11:44] LABS: BASOPHILS % (AUTO) 0.4 %; EOSINOPHILS # (AUTO) 0.1 10^3/uL (0.0-0.7); EOSINOPHILS % (AUTO) 1.2 %; HGB - HEMOGLOBIN 15.8 g/dL (14.0-18.0); LYMPHOCYTES # (AUTO) 1.3 10^3/uL (1.5-3.5); LYMPHOCYTES % (AUTO) 24.6 %; MEAN CORPUSCULAR HEMOGLOBIN 33.1 pg (27.0-31.0); MEAN CORPUSCULAR HGB CONC 34.3 g/dL (32.0-36.0); MEAN CORPUSCULAR VOLUME 96.2 fL (80.0-94.0); MEAN PLATELET VOLUME 11.6 fL (7.4-11.4); MONOCYTES # (AUTO) 0.6 10^3/uL (0.0-1.0); MONOCYTES % (AUTO) 12.6 %; NEUTROPHILS # (AUTO) 3.1 10^3/uL (1.5-6.6); PLT - PLATELET COUNT 61 10^3/uL (130-450); RED BLOOD COUNT 4.78 10^6/uL (4.70-6.10); RED CELL DISTRIBUTION WIDTH 14.1 % (12.0-15.0); WHITE BLOOD COUNT 5.1 x10^3/uL (4.8-10.8)
[2021-07-01 11:49] LABS: INR 1.2 (0.8-1.2); PT - PROTHROMBIN TIME 13.3 secs (9.9-12.6)
[2021-07-01 11:57] LABS: ALBUMIN 3.8 g/dL (3.2-5.5); ALBUMIN/GLOBULIN RATIO 1.2 (1.0-2.2); BILIRUBIN,TOTAL 1.3 mg/dL (0.2-1.0); CALCIUM 9.3 mg/dL (8.5-10.3); CREATININE 0.8 mg/dL (0.6-1.2); POTASSIUM 3.8 mmol/L (3.5-5.0)
== END 2021-07-01 11:30 | disposition home or self-care (01) ==
LOC: LAB 11:29
PROVIDERS: ATTEND Internal Medicine Hepatology
DX: K74.60 Unspecified cirrhosis of liver (principal); Z85.05 Personal history of malignant neoplasm of liver
CPT/HCPCS: 36415; 80053; 81599; 82105; 85025; 85610

== ENCOUNTER 2021-12-11 10:40 | Outpatient (CLI) | payer MEDICARE, BC ==
[2021-12-11 15:15] LABS: BASOPHILS # (AUTO) 0.1 10^3/uL (0.0-0.1); BASOPHILS % (AUTO) 1.5 %; EOSINOPHILS # (AUTO) 0.3 10^3/uL (0.0-0.7); EOSINOPHILS % (AUTO) 7.8 %; HCT - HEMATOCRIT 44.6 % (42.0-52.0); HGB - HEMOGLOBIN 15.4 g/dL (14.0-18.0); LYMPHOCYTES # (AUTO) 1.2 10^3/uL (1.5-3.5); LYMPHOCYTES % (AUTO) 30.4 %; MEAN CORPUSCULAR HEMOGLOBIN 32.8 pg (27.0-31.0); MEAN CORPUSCULAR HGB CONC 34.5 g/dL (32.0-36.0); MEAN CORPUSCULAR VOLUME 95.1 fL (80.0-94.0); MEAN PLATELET VOLUME 12.8 fL (7.4-11.4); MONOCYTES # (AUTO) 0.5 10^3/uL (0.0-1.0); NEUTROPHILS % (AUTO) 49.3 %; PLT - PLATELET COUNT 58 10^3/uL (130-450); RED BLOOD COUNT 4.69 10^6/uL (4.70-6.10); RED CELL DISTRIBUTION WIDTH 13.8 % (12.0-15.0); WHITE BLOOD COUNT 4.1 x10^3/uL (4.8-10.8)
[2021-12-11 15:30] LABS: ALBUMIN 3.5 g/dL (3.2-5.5); ALBUMIN/GLOBULIN RATIO 1.2 (1.0-2.2); BILIRUBIN,TOTAL 1.4 mg/dL (0.2-1.0); CALCIUM 9.3 mg/dL (8.5-10.3); CREATININE 0.8 mg/dL (0.6-1.2); POTASSIUM 4.1 mmol/L (3.5-5.0); TOTAL PROTEIN 6.5 g/dL (6.7-8.2)
[2021-12-11 15:33] LABS: INR 1.2 (0.8-1.2); PT - PROTHROMBIN TIME 13.2 secs (9.9-12.6)
== END 2021-12-11 10:41 | disposition home or self-care (01) ==
LOC: LAB.S 10:40
PROVIDERS: ATTEND Internal Medicine Hepatology
DX: K74.69 Other cirrhosis of liver (principal); Z85.05 Personal history of malignant neoplasm of liver
CPT/HCPCS: 36415; 80053; 81599; 82105; 85025; 85610

== ENCOUNTER 2022-03-11 14:09 | Outpatient (CLI) | payer MEDICARE, BC | END 2022-03-11 14:10 | disposition home or self-care (01) | LOC: LAB 14:09 | PROVIDERS: ATTEND Internal Medicine | DX: C22.0 Liver cell carcinoma (principal); I85.00 Esophageal varices without bleeding; I81 Portal vein thrombosis; K72.91 Hepatic failure, unspecified with coma; K74.60 Unspecified cirrhosis of liver | CPT/HCPCS: 36415; 82140 ==

== ENCOUNTER 2022-08-09 08:00 | Outpatient (CLI) | payer MEDICARE, BC ==
--- NOTE | 2022-08-09 15:59 | XRAY Report ---
PROCEDURE: Ribs w/PA Chest RT INDICATIONS: CONTUSION OF RIGHT FRONT WALL CHEST TECHNIQUE: 3 views of the right ribs were acquired, along with a single view chest. COMPARISON: 12/13/2018. Correlation is made with prior chest radiograph, 10/02/2017. Correlation is als o made with the coming shoulder plain films, 08/09/2022. FINDINGS: Surgical changes and devices: Postoperative change of the right shoulder is seen. A percutaneously pl aced aortic valve prosthesis can be seen. Right upper quadrant clips are seen. Bones and chest wall: On one image, there is a mildly displaced fracture seen involving the right po sterior lateral sixth rib. No fractures or dislocations are seen elsewhere. Age-appropriate degenerat elmo changes are seen. No suspicious bony lesions. Overlying soft tissues appear unremarkable. Lungs and pleura: No pleural effusions or pneumothorax. Lungs appear clear. Mediastinum: Mediastinal contours appear normal. Heart size is normal. Calcification is seen of th e aortic arch. IMPRESSION: On one image, there is a mildly displaced fracture seen involving the right posterolateral sixth rib. No associated pneumothorax is seen. Postoperative and degenerative changes are seen. Reviewed by: Orion Hsu MD on 08/09/2022 2:57 PM [place] Approved by: Orion Hsu MD on 08/09/2022 2:57 PM [facility] Station ID: [id number]
--- NOTE | 2022-08-09 16:00 | XRAY Report ---
PROCEDURE: Shoulder 3 View RT INDICATIONS: CONTUSION OF RIGHT SHOULDER TECHNIQUE: 3 views of the shoulder were acquired. COMPARISON: Correlation is made with the accompanying rib plain films, 08/09/2022. FINDINGS: Bones: There is a mildly displaced right posterolateral sixth rib fracture. No additional fractures or dislocations. No suspicious bony lesions. Visualized ribs appear intact. Postoperative changes are seen, with anchors involving the right humeral head. Degenerative changes a re seen, with moderate subacromial spurring. Soft tissues: No suspicious soft tissue calcifications. The visualized lung demonstrates a normal a ppearance. No pneumothorax is seen. A percutaneously placed aortic valve prosthesis can be seen. IMPRESSION: There is a mildly displaced right posterior lateral sixth rib fracture. Postoperative and degenerative changes are seen of the right shoulder. A percutaneously placed aortic valve prosthesis is noted. Reviewed by: Orion Hsu MD on 08/09/2022 2:59 PM [facility] Approved by: Orion Hsu MD on 08/09/2022 2:59 PM [facility] Station ID: [id number]
== END 2022-08-09 23:59 | disposition home or self-care (01) ==
LOC: DI.S 08:00
PROVIDERS: ATTEND Emergency Medicine
DX: S22.31XA Fracture of one rib, right side, initial encounter for closed fracture (principal); M19.011 Primary osteoarthritis, right shoulder; Z95.2 Presence of prosthetic heart valve

== ENCOUNTER 2022-10-16 10:25 | Emergency (ER) | payer MEDICARE, BC ==
--- OUTSIDE RECORDS SUMMARY | 2022-10-16 11:10 | EXTERNAL MEDICAL SUMMARY RPT | Continuity of Care Document ---
:1935 Author Organization [facility] Address [address] [place] [address] Phone Care Team Providers Name Role Phone Unavailable Unavailable Unavailable Strempel Patient Registrar, Rose Unavailable Unav ailable Allergies No information. Encounters No information. Functional Status No information. Immunizations No information. Medications date description facility 2022-08-09 00:00 tramadol [facility] 2022-08-21 00:00 prednisone [facility] 2022-08-21 00:00 nebulizer accessories [facility] 2022-10-16 00:00 peg 3350-electrolytes [facility] 2022-10-16 00:00 peg 3350-electrolytes [facility] 2022-08-21 00:00 prednisone [facility] 2022-10-16 00:00 omeprazole [facility] 2022-08-21 00:00 prednisone [facility] 2022-10-16 00:00 clopidogrel [facility] 2022-08-21 00:00 prednisone [facility] 2022-10-16 00:00 ezetimibe [facility] 2022-10-16 00:00 ezetimibe [facility] 2022-08-09 00:00 tramadol [facility] 2022-10-16 00:00 peg 3350-electrolytes [facility] 2022-10-16 00:00 omeprazole [facility] 2022-10-16 00:00 clopidogrel [facility] 2022-10-16 00:00 clopidogrel [facility] 2022-10-16 00:00 omeprazole [facility] 2022-10-16 00:00 omeprazole [facility] [place] 2022-08-09 00:00 tramadol [facility] 2022-10-16 00:00 ezetimibe [facility] 2022-10-16 00:00 ezetimibe [facility] [place] 2022-08-09 00:00 tramadol [facility] [place] 2022-10-16 00:00 clopidogrel [facility] Problems date description facility 2022-08-09 00:00 Closed fracture of single right [facility] n [facility] & rib [facility] roosevelt 2022-08-09 00:00 Contusion of right shoulder [facility]In [facility] 2022-08-09 00:00 Contusion of right chest wall [facility]In [facility] C roosevelt 2022-08-09 00:00 Closed fracture of one rib Walk[facility]In [facility] Santhosh roosevelt 2022-08-09 00:00 Contusion of right front wall of [facility] & thorax, initial encounter Ancillary Serv ices [place] 2022-08-09 00:00 Fracture of one rib, right side, [facility] & initial encounter for closed [facility] erv[facility] fracture 2022-08-09 00:00 Contusion of right shoulder, Walk-In [facility] Primary Care & initial encounter Ancillary Services Santhosh sarabia 2022-08-20 00:00 Unspecified viral infection [facility] sarabia 2022-08-20 00:00 Viral syndrome [facility] sarabia 2022-08-20 00:00 Other viral agents as the cause [facility] & of diseases classified elsewhere [facility] Procedures date description facility 2022-08-09 00:00 Visit Code Hold [facility] [place] 2022-08-20 00:00 Visit Code Hold [facility] [place] 2022-08-09 00:00 XR SHOULDER COMPLETE 2 VIEW [facility] joecornell Results/Labs No information. Social History date description facility 2022-08-09 00:00 Current every day smoker [facility] [place] 2022-08-20 00:00 Current every day smoker [facility] cornell Vital Signs date measurement value units 2022-08-20 00:00 BMI 25.92 kg/m2 2022-08-20 00:00 BP_diastolic 63 mmHg 2022-08-20 00:00 BP_systolic 138 mmHg 2022-08-20 00:00 heart_rate 60 /min 2022-08-20 00:00 height_metric 167.64 cm 2022-08-20 00:00 height_standard 66 in 2022-08-20 00:00 respiration_rate 16 /min 2022-08-20 00:00 temperature_metric 36.72 C 2022-08-20 00:00 temperature_standard 98.1 F 2022-08-20 00:00 weight_metric 72.57 kg 2022-08-20 00:00 weight_standard 160 lb
--- NOTE | 2022-10-16 12:28 | CT Report ---
PROCEDURE: HEAD WO INDICATIONS: weakness on plavix TECHNIQUE: Noncontrast 4.5 mm thick angled axial sections acquired from the foramen magnum to the vertex. For r adiation dose reduction, the following was used: automated exposure control, adjustment of mA and/or kV according to patient size. COMPARISON: None. FINDINGS: Image quality: Excellent. CSF spaces: Basal cisterns are patent. No extra-axial fluid collections. Ventricles are normal in size and shape. Brain: No midline shift. No intracranial masses or hemorrhage. No area of hypodensity in a vascula r distribution to suggest acute infarction. 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 Age-related parenchymal loss. Skull and face: Calvarium and visualized facial bones are intact, without suspicious lesions. Left l ens opacification. Sinuses: Mild paranasal sinus because of thickening. Mastoids are clear. IMPRESSION: No acute intracranial abnormality. Chronic microvascular ischemic disease. Reviewed by: Sergei Back MD on 10/16/2022 12:27 PM PST Approved by: Sergei Back MD on 10/16/2022 12:27 PM PST Station ID: [id number]
--- NOTE | 2022-10-16 12:45 | ED Physician Documentation ---
History of Present Illness - Stated complaint Stated Complaint: LANDIN PALSY - Chief complaint Chief Complaint: Neuro - History obtained from History obtained from: Patient, Family - Additonal information Additional information: This is an 86-year-old gentleman who presents from the clinic due to concerns for a stroke versus Landin's palsy. The patient states yesterday he developed some decrease sensation on his lips and had some trouble drinking his coffee as it was dribbling out but he noted no other findings. Today notes a right facial droop and he has difficulty closing his right eye and his right eye is watering. He denies any extremity weakness or numbness, no ataxia, no confusion or difficulty with word finding or speaking. He denies any headache or vision changes. No chest pain or dyspnea, no fever chills cough or URI symptoms, abdominal pain nausea vomiting or diarrhea, no urinary symptoms. He is on aspirin and Plavix already. Review of Systems Constitutional: reports: Reviewed and negative, Other (All other systems reviewed and are negative except as described in HPI) PD PAST MEDICAL HISTORY - Past Medical History Past Medical History: Yes Cardiovascular: Hypertension, High cholesterol, Coronary artery disease, [place] Respiratory: None Neuro: None Endocrine/Autoimmune: None GI: Hepatitis, Other Musculoskeletal: None - Past Surgical History Past Surgical History: Yes General: Liver surgery Ortho: Knee replacement, Shoulder arthroplasty, Carpal Tunnel surgery Cardiovascular: Coronary stent (4 years ago), Valve replacement (3 years ago) HEENT: Cataracts, Detached retina repair - Present Medications Home Medications: Ambulatory Orders Medication Instructions Recorded Confirmed Aspirin [Aspirin EC] 81 mg PO DAILY 09/22/17 09/22/17 Lactulose 240 ml PO TID 09/22/17 09/22/17 nadoloL [Nadolol] 20 mg PO DAILY 09/22/17 09/22/17 rifAXIMin [Xifaxan] 550 mg PO BID 09/22/17 09/22/17 Amlodipine Besylate [Norvasc] 2.5 mg PO DAILY 09/23/17 09/23/17 diphenhydrAMINE [Benadryl] 50 mg PO ONCE 03/04/18 03/04/18 predniSONE [Deltasone] 20 mg PO DAILY #10 tablet 03/04/18 Oxycodone HCl/Acetaminophen 1 - 2 each PO Q6H PRN #20 tablet 04/01/19 [Percocet 5-325 mg Tablet] EPINEPHrine [Epinephrine] 0.3 mg IJ ONCE PRN #1 auto.injct 03/30/19 predniSONE [Prednisone] 20 mg PO DAILY #3 tablet 03/30/19 Valacyclovir HCl [Valtrex] 1,000 mg PO TID 7 Days #21 tablet 10/16/22 predniSONE [Deltasone] 60 mg PO DAILY 7 Days #21 tablet 10/16/22 - Allergies Allergies/Adverse Reactions: Allergies Allergy/AdvReac Type Severity Reaction Status Date / Time Wasp Allergy Anaphylaxis Uncoded 09/20/19 07:57 - Social History Does the pt smoke?: No Smoking Status: Never smoker Does the pt drink ETOH?: No Does the pt have substance abuse?: No - Immunizations Immunizations are current?: Yes - POLST Patient has POLST: No PD ED PE NORMAL - Vitals Vital signs reviewed: Yes - General General: Alert and oriented X 3, No acute distress, Well developed/nourished - HEENT HEENT: Atraumatic, PERRL, EOMI, Moist mucous membranes, Pharynx benign, Other (Cannot completely close right eye, right eye is watery, mild scleral redness.) - Neck Neck: Supple, no meningeal sign, No bony TTP, No adenopathy, No JVD - Cardiac Cardiac: RRR, No murmur, No gallop, No rub - Respiratory Respiratory: No respiratory distress, Clear bilaterally - Abdomen Abdomen: Normal bowel sounds, Soft, Non tender, Non distended - Derm Derm: Normal color, Warm and dry, No rash - Extremities Extremities: No deformity, No tenderness to palpate, Normal ROM s pain, No edema, No calf tenderness / cord - Neuro Neuro: Alert and oriented X 3, No motor deficit, No sensory deficit, Normal speech, Other (Mild right facial droop involving the right facial nerve, involving the forehead. He is unable to wrinke the forehead or completely close the right eye. Neuro exam is otherwise normal.) Eye Opening: Spontaneous Motor: Obeys Commands Verbal: Oriented GCS Score: 15 Results - Vitals Vitals: Vital Signs - 24 hr 10/16/22 10/16/22 10/16/22 10:33 10:39 12:39 Temperature 36.4 C L 36.5 C 36.5 C Heart Rate 63 63 60 Respiratory 16 16 16 Rate Blood Pressure 132/50 H 132/50 H 130/60 O2 Saturation 99 99 100 Oxygen O2 Source Room air - Rads (name of study) No standard instances Radiology: Final report received PD Medical Decision Making - ED course Complexity details: reviewed results, re-evaluated patient, considered differential, d/w patient, d/w family ED course: 86-year-old male presented with right facial weakness concern for stroke versus Landin's palsy. 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 He has no other neurologic findings. We did obtain a head CT however given his history and age and this is negative. I have low suspicion for stroke. The patient is already on aspirin and Plavix in any case. We will treat him with a course of prednisone and valacyclovir. I did caution the patient regarding potential for increased risk of bleeding on prednisone w/ aspirin and plavix. states he has used it in the past w/o difficulty. Patient was advised of typical course of illness and return precautions. 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 I recommend that you get some [id number] moisturizing eyedrops or drops to keep your right eye moisturized you may consider taping closed at nighttime. If you develop eye pain or decreased vision, please follow-up with an biodiesel product development manager. I also given you 2 different medications that may help with the symptoms, prednisone and valacyclovir. You are at slightly higher risk of bleeding on the prednisone given your history and your use of Plavix and aspirin. Please monitor closely and if you develop any bleeding, stop this medication and return for follow-up. If you have new or worsening symptoms, r eturn to the ER. Discharge Date/Time: 10/16/22 12:53
[2022-10-16 12:53] VITALS: BP 130/60
== END 2022-10-16 12:53 | disposition home or self-care (01) ==
LOC: ED 10:25
DX: G51.0 Bell's palsy (principal); I25.2 Old myocardial infarction; I10 Essential (primary) hypertension
CPT/HCPCS: 99283; 99284

== ENCOUNTER 2022-12-06 12:19 | Emergency (ER) | payer MEDICARE, BC ==
[2022-12-06 12:28] VITALS: BP 127/94
--- NOTE | 2022-12-06 12:42 | ED Physician Documentation ---
PD HPI LOWER EXT INJURY - Stated complaint Stated Complaint: MALE PX - Chief complaint Chief Complaint: Ext Problem - History obtained from History obtained from: Patient, Family - Additional information Additional information: 87-year-old gentleman with history of valvular replacements and cirrhosis presents with right-sided groin pain starting this morning. His who is at the bedside also said he had it mildly yesterday. At rest it is very mild, but gets worse if he walks or twists his hip. There is no specific injury, the nurse noted he had been working with a [employer] but the patient did not feel like it was much. There is pain does not radiate to the back or down the leg. PD PAST MEDICAL HISTORY - Past Medical History Cardiovascular: Hypertension, High cholesterol, Coronary artery disease, [place] Respiratory: None Neuro: None Endocrine/Autoimmune: None GI: Hepatitis, Other Musculoskeletal: None - Past Surgical History Past Surgical History: Yes General: Liver surgery Ortho: Knee replacement, Shoulder arthroplasty, Carpal Tunnel surgery Cardiovascular: Coronary stent (4 years ago), Valve replacement (3 years ago) HEENT: Cataracts, Detached retina repair - Present Medications Home Medications: Ambulatory Orders Medication Instructions Recorded Confirmed Aspirin [Aspirin EC] 81 mg PO DAILY 09/22/17 09/22/17 Lactulose 240 ml PO TID 09/22/17 09/22/17 nadoloL [Nadolol] 20 mg PO DAILY 09/22/17 09/22/17 rifAXIMin [Xifaxan] 550 mg PO BID 09/22/17 09/22/17 Amlodipine Besylate [Norvasc] 2.5 mg PO DAILY 09/23/17 09/23/17 diphenhydrAMINE [Benadryl] 50 mg PO ONCE 03/04/18 03/04/18 predniSONE [Deltasone] 20 mg PO DAILY #10 tablet 03/04/18 Oxycodone HCl/Acetaminophen 1 - 2 each PO Q6H PRN #20 tablet 12/13/18 [Percocet 5-325 mg Tablet] EPINEPHrine [Epinephrine] 0.3 mg IJ ONCE PRN #1 auto.injct 03/30/19 predniSONE [Prednisone] 20 mg PO DAILY #3 tablet 03/30/19 Valacyclovir HCl [Valtrex] 1,000 mg PO TID 7 Days #21 tablet 10/16/22 predniSONE [Deltasone] 60 mg PO DAILY 7 Days #21 tablet 10/16/22 Meloxicam [Mobic] 7.5 mg PO BID PRN #8 tablet 12/06/22 - Allergies Allergies/Adverse Reactions: Allergies Allergy/AdvReac Type Severity Reaction Status Date / Time Wasp Allergy Anaphylaxis Uncoded 12/06/22 12:28 - Social History Does the pt smoke?: No Smoking Status: Never smoker Does the pt drink ETOH?: No Does the pt have substance abuse?: No - Immunizations Immunizations are current?: Yes - POLST Patient has POLST: No PD ED PE NORMAL - Vitals Vital signs reviewed: Yes - General General: Alert and oriented X 3, No acute distress - Extremities Extremities: Other (I am unable to elicit any tenderness about the right hip, inguinal ligament, or groin. No signs of infection in the perineal area or inguinal area. He does have mild pain with external rotation of the hip and flexion of the hip. The leg is nontender with good pedal pulses and no swelling.) - Neuro Neuro: Alert and oriented X 3, Normal speech Results - Vitals Vitals: Vital Signs - 24 hr 12/06/22 12:24 Temperature 36.3 C L Heart Rate 66 Respiratory 16 Rate Blood Pressure 127/94 H O2 Saturation 98 Oxygen O2 Source Room air - Rads (name of study) 2 view x-ray of the right hip demonstrates degenerative changes in the hips and lumbar spine without acute abnormality. Relevant Findings:: Final report received, EMP independent interpretation of test PD Medical Decision Making - ED course ED course: 87-year-old gentleman presents with reproducible pain in the right hip and groin. No evidence clinically of infection. Differential would include muscle strain, hip osteoarthritis. More worrisome would be malignant disease, that said the time course would suggest against that as it has been very short. X- rays demonstrate degenerative changes but no more worrisome findings. He is prescribed a very short course of NSAIDs and watchful waiting. Departure - Departure Disposition: 01 Home, Self Care Clinical Impression: Right groin pain Condition: Good Record reviewed to determine appropriate education?: Yes Instructions: ED Acute Pain [facility] Prescriptions: Meloxicam [Mobic] 7.5 mg PO BID PRN #8 tablet PRN Reason: Pain Comments: X-rays showing osteoarthritis, albeit not too severe given your age. I am prescribing a very short course of anti-inflammatories, I do not want you taking the long-term because of side effects though. If not better by midweek follow- up with your doctor for reevaluation. Return for new or worsening symptoms.
--- OUTSIDE RECORDS SUMMARY | 2022-12-06 13:13 | EXTERNAL MEDICAL SUMMARY RPT | Continuity of Care Document ---
:1935 Author Organization [facility] Address [address] [place] [address] Phone Care Team Providers Name Role Phone Unavailable Unavailable Unavailable Avel Bautista Md Unavailable Unavailable Caesar Patient Registrar, Rose Unavailable Unav ailable Allergies No information. Encounters No information. Functional Status No information. Immunizations No information. Medications date description facility 2022-10-16 00:00 peg 3350-electrolytes [facility] 2022-10-16 00:00 peg 3350-electrolytes [facility] 2022-10-17 00:00 peg 3350-electrolytes [facility] 2022-10-16 00:00 peg 3350-electrolytes [facility] 2022-10-16 00:00 peg 3350-electrolytes [facility] 2022-10-17 00:00 peg 3350-electrolytes [facility] 2022-10-16 00:00 omeprazole [facility] 2022-10-16 00:00 omeprazole [facility] 2022-10-17 00:00 omeprazole [facility] 2022-10-16 00:00 clopidogrel [facility] 2022-10-16 00:00 clopidogrel [facility] 2022-10-17 00:00 clopidogrel [facility] 2022-10-16 00:00 ezetimibe [facility] 2022-10-16 00:00 ezetimibe [facility] 2022-10-17 00:00 ezetimibe [facility] 2022-10-16 00:00 ezetimibe [facility] 2022-10-16 00:00 ezetimibe [facility] 2022-10-17 00:00 ezetimibe [facility] 2022-10-16 00:00 peg 3350-electrolytes [facility] 2022-10-16 00:00 peg 3350-electrolytes [facility] 2022-10-17 00:00 peg 3350-electrolytes [facility] 2022-10-16 00:00 omeprazole [facility] 2022-10-16 00:00 omeprazole [facility] 2022-10-17 00:00 omeprazole [facility] 2022-10-16 00:00 clopidogrel [facility] 2022-10-16 00:00 clopidogrel [facility] 2022-10-17 00:00 clopidogrel [facility] 2022-10-16 00:00 clopidogrel [facility] 2022-10-16 00:00 clopidogrel [facility] 2022-10-17 00:00 clopidogrel [facility] 2022-10-16 00:00 omeprazole [facility] 2022-10-16 00:00 omeprazole [facility] 2022-10-17 00:00 omeprazole [facility] 2022-10-16 00:00 omeprazole [facility] 2022-10-16 00:00 omeprazole [facility] 2022-10-17 00:00 omeprazole [facility] 2022-10-16 00:00 ezetimibe [facility] 2022-10-16 00:00 ezetimibe [facility] 2022-10-17 00:00 ezetimibe [facility] 2022-10-16 00:00 ezetimibe [facility] 2022-10-16 00:00 ezetimibe [facility] 2022-10-17 00:00 ezetimibe [facility] 2022-10-16 00:00 clopidogrel [facility] 2022-10-16 00:00 clopidogrel [facility] 2022-10-17 00:00 clopidogrel [facility] Problems date description facility 2022-10-16 00:00 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 Social History No information. Vital Signs date measurement value units 2022-10-16 00:00 BMI 25.92 kg/m2 2022-10-16 00:00 BP_diastolic 72 mmHg 2022-10-16 00:00 BP_systolic 132 mmHg 2022-10-16 00:00 heart_rate 70 /min 2022-10-16 00:00 height_metric 167.64 cm 2022-10-16 00:00 height_standard 66 in 2022-10-16 00:00 respiration_rate 20 /min 2022-10-16 00:00 weight_metric 72.57 kg 2022-10-16 00:00 weight_standard 160 lb
--- NOTE | 2022-12-06 13:41 | XRAY Report ---
PROCEDURE: Hip w/Pelvis 2-3V RT INDICATIONS: hip pain TECHNIQUE: AP pelvis with lateral view of the right hip. COMPARISON: None. FINDINGS: Bones: No acute fractures or dislocations. Pelvic ring appears intact. No suspicious bony lesions. Degenerative changes are seen in the hips and lumbar spine. Soft tissues: The visualized bowel gas pattern is normal. No suspicious soft tissue calcifications. IMPRESSION: No acute osseous abnormality. If there is clinical concern or persistent symptoms, additi onal imaging such as repeat radiographs or advanced imaging (e.g. CT, MRI) may be helpful for further evaluation. Reviewed by: Lawrence Zhou MD on 12/06/2022 1:40 PM PDT Approved by: Lawrence Zhou MD on 12/06/2022 1:40 PM PDT Station ID: [id number]
== END 2022-12-06 13:52 | disposition home or self-care (01) ==
LOC: ED 12:19
DX: R10.31 Right lower quadrant pain (principal); M25.551 Pain in right hip; M16.11 Unilateral primary osteoarthritis, right hip
CPT/HCPCS: 99283

== ENCOUNTER 2022-12-15 00:10 | Outpatient (CLI) | payer MEDICARE, BC | END 2022-12-15 23:59 | disposition short-term general hospital (02) | LOC: EMS 00:10 | DX: R07.89 Other chest pain (principal); R42 Dizziness and giddiness; R06.02 Shortness of breath | CPT/HCPCS: A0425; A0427 ==

== ENCOUNTER 2023-07-05 06:33 | Outpatient (CLI) | payer MEDICARE, BC | END 2023-07-05 06:34 | disposition critical access hospital (66) | LOC: EMS 06:33 | DX: K92.0 Hematemesis (principal); R10.13 Epigastric pain | CPT/HCPCS: A0425; A0427 ==

== ENCOUNTER 2023-07-05 06:58 | Emergency (ER) | payer MEDICARE, BC ==
[2023-07-05] MEDS ORDERED: FAMOTIDINE 20 MG/2 ML VIAL IVP STA (07:03)
[2023-07-05 07:30] LABS: BASOPHILS # (AUTO) 0.1 10^3/uL (0.0-0.1); BASOPHILS % (AUTO) 0.9 %; EOSINOPHILS # (AUTO) 0.1 10^3/uL (0.0-0.7); EOSINOPHILS % (AUTO) 2.3 %; HCT - HEMATOCRIT 36.9 % (42.0-52.0); HGB - HEMOGLOBIN 12.3 g/dL (14.0-18.0); LYMPHOCYTES # (AUTO) 1.2 10^3/uL (1.5-3.5); LYMPHOCYTES % (AUTO) 20.5 %; MEAN CORPUSCULAR HEMOGLOBIN 30.7 pg (27.0-31.0); MEAN CORPUSCULAR HGB CONC 33.3 g/dL (32.0-36.0); MEAN PLATELET VOLUME 12.2 fL (7.4-11.4); MONOCYTES # (AUTO) 0.6 10^3/uL (0.0-1.0); MONOCYTES % (AUTO) 9.8 %; NEUTROPHILS # (AUTO) 3.8 10^3/uL (1.5-6.6); NEUTROPHILS % (AUTO) 66.3 %; PLT - PLATELET COUNT 68 10^3/uL (130-450); RED BLOOD COUNT 4.01 10^6/uL (4.70-6.10); RED CELL DISTRIBUTION WIDTH 14.7 % (12.0-15.0); WHITE BLOOD COUNT 5.7 x10^3/uL (4.8-10.8)
[2023-07-05] MEDS ORDERED: ONDANSETRON 4 MG/2 ML VIAL IVP STA (07:34)
[2023-07-05] MEDS ORDERED: MAG HYDROX/AL HYDROX/SIMETH 30 ML UDC PO STA (07:35)
[2023-07-05] MEDS ORDERED: HYDROmorphone 0.5 MG/0.5 ML SYRINGE IVP STA (07:35)
[2023-07-05] MEDS ORDERED: LIDOCAINE VISCOUS 2% 15 ML ORAL SYRINGE MM STA (07:35)
--- NOTE | 2023-07-05 07:58 | ED Physician Documentation ---
PD HPI NVD - Stated complaint Stated Complaint: N/V - Chief complaint Chief Complaint: Abd Pain - History obtained from History obtained from: Patient - Additonal information Additional information: The patient comes to the emergency department chief complaint of nausea this morning with 2 episodes of vomiting. The patient states that he vomited up some blackish brown material both times, but denies zoe blood. He states that he had started to feel sick yesterday like he was coming down with something, but did not have any distinct nausea at that time. He denies diarrhea. He did have 1 small bowel movement this morning that was a normal brown color according to his . 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 He had fracturing of the liver at that time and had significant scarring afterward. He does have history of varices which are monitored by MRI every year and his most recent MRI was in March. This did redemonstrate the varices and endoscopy was just done 2 days ago to assess the need for possible banding. Patient's states that the machine coil assembler told them that PD PAST MEDICAL HISTORY - Past Medical History Past Medical History: Yes Cardiovascular: Hypertension, High cholesterol, Coronary artery disease, ND Respiratory: None Neuro: None Endocrine/Autoimmune: None GI: Hepatitis, Other Musculoskeletal: None - Past Surgical History Past Surgical History: Yes General: Liver surgery Ortho: Knee replacement, Shoulder arthroplasty, Carpal Tunnel surgery Cardiovascular: Coronary stent, Valve replacement HEENT: Cataracts, Detached retina repair - Present Medications Home Medications: Ambulatory Orders Medication Instructions Recorded Confirmed Aspirin [Aspirin EC] 81 mg PO DAILY 09/22/17 07/05/23 Lactulose 240 ml PO TID 09/22/17 07/05/23 nadoloL [Nadolol] 20 mg PO DAILY 09/22/17 07/05/23 rifAXIMin [Xifaxan] 550 mg PO BID 09/22/17 07/05/23 Amlodipine Besylate [Norvasc] 2.5 mg PO DAILY 09/23/17 07/05/23 EPINEPHrine [Epinephrine] 0.3 mg IJ ONCE PRN #1 auto.injct 03/30/19 07/05/23 - Allergies Allergies/Adverse Reactions: Allergies Allergy/AdvReac Type Severity Reaction Status Date / Time Wasp Allergy Anaphylaxis Uncoded 07/05/23 07:10 - Social History Does the pt smoke?: No Smoking Status: Never smoker Does the pt drink ETOH?: No Does the pt have substance abuse?: No - Immunizations Immunizations are current?: Yes - POLST Patient has POLST: No PD ED PE NORMAL - Vitals Vital signs reviewed: Yes - General General: Alert and oriented X 3, No acute distress, Well developed/nourished - HEENT HEENT: Atraumatic, PERRL, EOMI, Moist mucous membranes - Neck Neck: Supple, no meningeal sign - Cardiac Cardiac: RRR, No murmur - Respiratory Respiratory: No respiratory distress, Clear bilaterally - Abdomen Abdomen: Soft, Non distended, Other (mild epigastric tenderness, no rebound or guarding) - Derm Derm: Warm and dry - Extremities Extremities: No deformity - Neuro Neuro: Alert and oriented X 3 - Psych Psych: Normal mood, Normal affect Results - Vitals Vitals: Vital Signs - 24 hr 07/05/23 07/05/23 07/05/23 07:06 11:32 13:45 Temperature 36.0 C L Heart Rate 54 L 61 55 L Respiratory 16 19 11 L Rate Blood Pressure 139/53 H 145/65 H 131/67 H O2 Saturation 97 97 97 07/05/23 07/05/23 07/05/23 15:07 17:50 19:05 Temperature Heart Rate 60 59 L 56 L Respiratory 15 12 13 Rate Blood Pressure 132/62 H 90/78 134/65 H O2 Saturation 97 96 98 07/05/23 21:00 Temperature 36.5 C Heart Rate 60 Respiratory 14 Rate Blood Pressure 130/60 O2 Saturation 98 Oxygen O2 Source Room air - EKG (time done) 0709 EKG releavant findings:: EKG personally interpreted by author of this note. Relevant findings are: Rate: Rate (enter#) (50) Rhythm: Sinus bradycardia Nash: Normal Intervals: Normal VA, LBBB QRS: Normal Ischemia: Normal ST segments Other comments: Other comments Compare to prior EKG: Old EKG unavailable Computer interpretation: Agree with computer - Labs Labs: Laboratory Tests 07/05/23 07/05/23 07/05/23 07:22 07:22 07:22 WBC 5.7 RBC 4.01 L Hgb 12.3 L Hct 36.9 L MCV 92.0 MCH 30.7 MCHC 33.3 RDW 14.7 Plt Count 68 L MPV 12.2 H Neut # (Auto) 3.8 Lymph # (Auto) 1.2 L [place] # (Auto) 0.6 Eos # (Auto) 0.1 Baso # (Auto) 0.1 Absolute Nucleated RBC 0.00 Nucleated RBC % 0.0 PT 14.5 H INR 1.3 H Sodium 145 Potassium 4.7 H Chloride 110 Carbon Dioxide 30 Anion Gap 5.0 L BUN 43 H Creatinine 0.9 Estimated GFR (MDRD) 80 L Glucose 105 H Calcium 10.2 Magnesium 1.9 Total Bilirubin 1.0 AST 22 ALT 14 Alkaline Phosphatase 82 Total Protein 6.0 L Albumin 3.5 Globulin 2.5 Albumin/Globulin Ratio 1.4 Lipase 20 07/05/23 07/05/23 07/05/23 10:17 12:37 17:13 WBC 6.0 6.1 RBC 3.59 L 3.80 L Hgb 11.0 L 11.7 L 11.5 L Hct 33.4 L 35.3 L 34.7 L MCV 93.0 92.9 MCH 30.6 30.8 MCHC 32.9 33.1 RDW 14.8 14.8 Plt Count 62 L 65 L MPV 12.1 H 12.3 H Neut # (Auto) 4.1 4.2 Lymph # (Auto) 1.3 L 1.4 L [place] # (Auto) 0.4 0.5 Eos # (Auto) 0.1 0.0 Baso # (Auto) 0.0 0.0 Absolute Nucleated RBC 0.00 0.00 Nucleated RBC % 0.0 0.0 PT INR Sodium Potassium Chloride Carbon Dioxide Anion Gap BUN Creatinine Estimated GFR (MDRD) Glucose Calcium Magnesium Total Bilirubin AST ALT Alkaline Phosphatase Total Protein Albumin Globulin Albumin/Globulin Ratio Lipase PD Medical Decision Making - ED course Complexity details: reviewed old records, reviewed results, re-evaluated patient, considered differential, d/w patient, d/w family, d/w furniture sales consultant ED course: The patient was stable in the emergency department as far as his vital signs, and he looked actually quite good. We did order labs, including a CBC, which showed hemoglobin of 12.3. The patient was given a liter of IV fluid, as well as IV Pepcid and Zofran. He also was given a GI cocktail and after this, was found to be vomiting again. He did continue to have what appeared to be coffee- ground emesis. He was given a dose of droperidol and later, dose of Protonix. The patient at the time of this dictation had not had any further nausea or vomiting. A second hemoglobin done about 3 hours after the first was found to be 11.0. I discussed the case with the patient's machine coil assembler, Dr. Snowden, who stated that although he had feels that the likelihood of significant bleeding is low, given the patient's age and recent polyp removal from the stomach, he would like to have him observed overnight. I spoke with Dr. Coreas, the on-call hospitalist for [facility] [place], and she did accept the patient in transfer. For now, we are waiting for a bed to become available so that the patient can go to [facility]. The patient's third hemoglobin is 11.7, which is improved from the second one. We will continue to recheck H&H's and monitor the patient's vital signs until his time of transfer. I have discussed the plan with both the patient and his . At this point in time, the pt continues to await bed assignment and transfer to [facility]. The pt is signed out to Dr. Lees at change of shift, pending transfer. Departure - Departure Disposition: 02 Transfer Acute Care Hosp Clinical Impression: Upper GI bleed Condition: Serious Forms: PCP List
[2023-07-05 08:22] LABS: ALBUMIN 3.5 g/dL (3.2-5.5); ALBUMIN/GLOBULIN RATIO 1.4 (1.0-2.2); CALCIUM 10.2 mg/dL (8.5-10.3); CREATININE 0.9 mg/dL (0.6-1.3); MAGNESIUM 1.9 mg/dL (1.7-2.3); POTASSIUM 4.7 mmol/L (3.5-4.5)
[2023-07-05] MEDS ORDERED: DROPERIDOL 5 MG/2 ML VIAL IVP STA (08:41)
[2023-07-05 09:37] LABS: INR 1.3 (0.8-1.2); PT - PROTHROMBIN TIME 14.5 secs (9.9-12.6)
[2023-07-05 10:33] LABS: BASOPHILS % (AUTO) 0.7 %; EOSINOPHILS # (AUTO) 0.1 10^3/uL (0.0-0.7); HCT - HEMATOCRIT 33.4 % (42.0-52.0); LYMPHOCYTES # (AUTO) 1.3 10^3/uL (1.5-3.5); LYMPHOCYTES % (AUTO) 21.5 %; MEAN CORPUSCULAR HEMOGLOBIN 30.6 pg (27.0-31.0); MEAN CORPUSCULAR HGB CONC 32.9 g/dL (32.0-36.0); MEAN PLATELET VOLUME 12.1 fL (7.4-11.4); MONOCYTES # (AUTO) 0.4 10^3/uL (0.0-1.0); MONOCYTES % (AUTO) 7.2 %; NEUTROPHILS # (AUTO) 4.1 10^3/uL (1.5-6.6); NEUTROPHILS % (AUTO) 69.4 %; PLT - PLATELET COUNT 62 10^3/uL (130-450); RED BLOOD COUNT 3.59 10^6/uL (4.70-6.10); RED CELL DISTRIBUTION WIDTH 14.8 % (12.0-15.0)
--- NOTE | 2023-07-05 10:35 | CT Report ---
PROCEDURE: CT abdomen pelvis with contrast INDICATIONS: recent endoscopy, upper abd pain TECHNIQUE: Helical axial CT of the abdomen and pelvis was obtained after intravenous contrast adminis tration and reformatted in multiple planes. Radiation dose reduction was achieved using automated exp osure control or adjustment of mA and/or kV according to patient size. COMPARISON: 05/04/2020 FINDINGS: Lower thorax: Heart size is enlarged. Dense coronary artery vascular calcification present. Aortic va lve replacement noted. 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 The left portal vein is diminu tive, decreased in size from the prior exam. The low-density region in the left hepatic lobe also rem ains similar the prior exam, probably postsurgical. Biliary system: No calcified cholelithiasis or pericholecystic inflammation. No evidence of bile du ct dilatation. Pancreas: Unremarkable without mass or inflammation evident. Spleen: Normal in size and density. Adrenals: Normal morphology and density. Reproductive system: Prostate is enlarged, and elevates the bladder floor Urinary system: Normal renal size and attenuation. No renal calculi, hydronephrosis, or solid mass p resent. Urinary bladder unremarkable. Gastrointestinal system: High-density gastric contents in noted in the gastric fundus. Intraluminal gastric surgical clips noted in the antrum. No evidence of perforation. Multiple diverticuli arise fr om the sigmoid colon without evidence of diverticulitis. Appendix: Normal-appearing appendix identified Peritoneal spaces: No mesenteric or retroperitoneal adenopathy. No free air. No free fluid. Vasculature: The IVC, aorta and iliac vasculature are unremarkable. Abdominal wall: Abdominal wall is intact without evidence of ventral or inguinal hernias. Musculoskeletal: Normal bone mineralization. No acute fractures. 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 Subpleural right hepatic resection with wedge-shaped hypodensity in the left hepatic lobe, probable p ostsurgical sequelae High density debris in the gastric fundus associated with image surgical clip in the gastric antrum. No evidence of perforation or free air. No bowel obstruction. Reviewed by: Esdras Oviedo MD on 07/05/2023 9:34 AM [facility] Approved by: Esdras Oviedo MD on 07/05/2023 9:34 AM [facility] Station ID: [id number]
--- NOTE | 2023-07-05 12:02 | XRAY Report ---
PROCEDURE: Chest 1 View X-Ray INDICATIONS: CP/VOMITING S/P EGD TECHNIQUE: One view of the chest was acquired. COMPARISON: None FINDINGS: Surgical changes and devices: Aortic valve replacement and surgical clips in the right upper quadran t noted Lungs and pleura: No pleural effusions or pneumothorax. Lungs are clear. Mediastinum: Mediastinal contours appear normal. Heart size is enlarged. Atherosclerotic vascular c alcification noted in the aortic arch. Bones and chest wall: No suspicious bony lesions. Overlying soft tissues appear unremarkable. Old healed right clavicular fracture IMPRESSION: Cardiomegaly without acute cardiopulmonary findings Reviewed by: Esdras Oviedo MD on 07/05/2023 11:01 AM [facility] Approved by: Esdras Oviedo MD on 07/05/2023 11:01 AM [facility] Station ID: [id number]
[2023-07-05 12:44] LABS: BASOPHILS % (AUTO) 0.7 %; EOSINOPHILS % (AUTO) 0.7 %; HCT - HEMATOCRIT 35.3 % (42.0-52.0); HGB - HEMOGLOBIN 11.7 g/dL (14.0-18.0); LYMPHOCYTES # (AUTO) 1.4 10^3/uL (1.5-3.5); LYMPHOCYTES % (AUTO) 22.1 %; MEAN CORPUSCULAR HEMOGLOBIN 30.8 pg (27.0-31.0); MEAN CORPUSCULAR HGB CONC 33.1 g/dL (32.0-36.0); MEAN CORPUSCULAR VOLUME 92.9 fL (80.0-94.0); MEAN PLATELET VOLUME 12.3 fL (7.4-11.4); MONOCYTES # (AUTO) 0.5 10^3/uL (0.0-1.0); MONOCYTES % (AUTO) 7.5 %; NEUTROPHILS # (AUTO) 4.2 10^3/uL (1.5-6.6); NEUTROPHILS % (AUTO) 68.8 %; PLT - PLATELET COUNT 65 10^3/uL (130-450); RED CELL DISTRIBUTION WIDTH 14.8 % (12.0-15.0); WHITE BLOOD COUNT 6.1 x10^3/uL (4.8-10.8)
[2023-07-05] MEDS ORDERED: iohexoL-300 100 ML VIAL IVP ONE (12:49)
[2023-07-05] MEDS ORDERED: PANTOPRAZOLE 40 MG VIAL IV STA (14:50)
[2023-07-05 17:19] LABS: HCT - HEMATOCRIT 34.7 % (42.0-52.0); HGB - HEMOGLOBIN 11.5 g/dL (14.0-18.0)
[2023-07-05] MEDS ORDERED: SODIUM CHLORIDE 0.9% 1,000 ML IV STA (19:07)
[2023-07-06 05:22] LABS: HCT - HEMATOCRIT 30.9 % (42.0-52.0); HGB - HEMOGLOBIN 10.1 g/dL (14.0-18.0)
--- NOTE | 2023-07-06 13:10 | ED Physician Documentation ---
ED Addendum - Addendum Addendum: 07/06/23 13:09 The patient had repeat blood test today. His hemoglobin is 10.1 down from 12.4. This has been over a period of time with some IV fluids. He has not had any vomiting overnight into this morning. He had a light breakfast. He is resting at this time comfortably. Was still awaiting word from [facility]. As of this morning that he did not have any beds available. He is still on the waiting list. 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
[2023-07-06] MEDS ORDERED: SODIUM CHLORIDE 0.9% 1,000 ML IV STA (13:50)
[2023-07-06] MEDS ORDERED: PANTOPRAZOLE 40 MG VIAL IVP SCH (14:00)
[2023-07-06] MEDS ORDERED: MAG HYDROX/AL HYDROX/SIMETH 30 ML UDC PO SCH (14:00)
[2023-07-06] MEDS ORDERED: FAMOTIDINE 20 MG/2 ML VIAL IVP SCH (14:00)
[2023-07-06 16:21] VITALS: BP 118/56; O2SAT 97
== END 2023-07-06 16:50 | disposition short-term general hospital (02) ==
LOC: EDUNIT# → ED 06:58
DX: K92.2 Gastrointestinal hemorrhage, unspecified (principal); I10 Essential (primary) hypertension; Z86.2 Personal history of diseases of the blood and blood-forming organs and certain disorders involving the immune mechanism
CPT/HCPCS: 36415; 71045; 74177; 80053; 83690; 83735; 85014; 85018; 85025; 85610; 93005; 96374; 96375; 96376; 99285; A9270; J1170; Q9967

== ENCOUNTER 2023-10-01 07:00 | Outpatient (CLI) | payer MEDICARE, BC ==
--- NOTE | 2023-10-01 15:11 | XRAY Report ---
PROCEDURE: Ribs w/PA Chest 4+V BL INDICATIONS: CONTUSION TO LEFT FRONT WALL THORAX TECHNIQUE: 2 views of the ribs were acquired, along with a single view chest. COMPARISON: None. FINDINGS: Surgical changes and devices: Prosthetic valve. Surgical clips in the right upper quadrant. Surgical anchors in the right humerus. Bones and chest wall: No fractures or dislocations. No suspicious bony lesions. Overlying soft tis sues appear unremarkable. Lungs and pleura: No pleural effusions or pneumothorax. Lungs appear clear. Mediastinum: Mediastinal contours appear normal. Heart size is normal. IMPRESSION: No displaced rib fracture or pneumothorax. Reviewed by: Marcos Mcdonald MD on 10/01/2023 3:10 PM [facility] Approved by: Marcos Mcdonald MD on 10/01/2023 3:10 PM [facility] Station ID: [id number]
== END 2023-10-01 23:59 | disposition home or self-care (01) ==
LOC: DI.S 07:00
PROVIDERS: ATTEND Emergency Medicine
DX: S20.212A Contusion of left front wall of thorax, initial encounter (principal)

== ENCOUNTER 2024-05-11 16:14 | Outpatient (CLI) | payer MEDICARE, BC ==
[2024-05-11 16:34] LABS: BASOPHILS % (AUTO) 0.9 %; EOSINOPHILS # (AUTO) 0.2 10^3/uL (0.0-0.7); EOSINOPHILS % (AUTO) 5.2 %; HCT - HEMATOCRIT 34.9 % (42.0-52.0); HGB - HEMOGLOBIN 10.6 g/dL (14.0-18.0); LYMPHOCYTES # (AUTO) 1.4 10^3/uL (1.5-3.5); LYMPHOCYTES % (AUTO) 29.9 %; MEAN CORPUSCULAR HGB CONC 30.4 g/dL (32.0-36.0); MEAN CORPUSCULAR VOLUME 75.7 fL (80.0-94.0); MONOCYTES # (AUTO) 0.5 10^3/uL (0.0-1.0); MONOCYTES % (AUTO) 11.6 %; NEUTROPHILS # (AUTO) 2.4 10^3/uL (1.5-6.6); NEUTROPHILS % (AUTO) 52.2 %; PLT - PLATELET COUNT 80 10^3/uL (130-450); RED BLOOD COUNT 4.61 10^6/uL (4.70-6.10); RED CELL DISTRIBUTION WIDTH 21.3 % (12.0-15.0); WHITE BLOOD COUNT 4.7 x10^3/uL (4.8-10.8)
[2024-05-11 16:37] LABS: INR 1.3 (0.8-1.2)
[2024-05-11 16:43] LABS: ALBUMIN 3.7 g/dL (3.2-5.5); ALBUMIN/GLOBULIN RATIO 1.3 (1.0-2.2); BILIRUBIN,TOTAL 0.8 mg/dL (0.2-1.0); CALCIUM 9.2 mg/dL (8.5-10.3); CREATININE 0.9 mg/dL (0.6-1.3); POTASSIUM 4.1 mmol/L (3.5-4.5); TOTAL PROTEIN 6.6 g/dL (6.4-8.9)
[2024-05-11 16:57] LABS: PLATELET ESTIMATE, MANUAL DECREASED (<130,000) (NORMAL); PLATELET MORPHOLOGY NORMAL APPEARANCE (NORMAL); SLIDE REVIEW? Indicated
[2024-05-11 16:58] LABS: THYROID STIMULATING HORMONE 6.02 uIU/mL (0.34-5.60)
== END 2024-05-11 16:15 | disposition home or self-care (01) ==
LOC: LAB 16:14
PROVIDERS: ATTEND Nurse Practitioner Acute Care
DX: K74.60 Unspecified cirrhosis of liver (principal); Z13.228 Encounter for screening for other metabolic disorders; Z13.29 Encounter for screening for other suspected endocrine disorder; Z13.0 Encounter for screening for diseases of the blood and blood-forming organs and certain disorders involving the immune mechanism; I10 Essential (primary) hypertension
CPT/HCPCS: 36415; 80053; 82140; 84439; 84443; 85025; 85610

== ENCOUNTER 2024-05-19 08:12 | Outpatient (CLI) | payer MEDICARE, BC | END 2024-05-19 08:13 | disposition home or self-care (01) | LOC: LAB.R 08:12 | PROVIDERS: ATTEND Nurse Practitioner | DX: L72.0 Epidermal cyst (principal) | CPT/HCPCS: 87070; 87205 ==

== ENCOUNTER → 2024-05-20 | Outpatient (CLI) | payer MEDICARE, BC ==
[2024-05-31 09:00] LABS: FECAL OCCULT BLOOD (FIT) NEGATIVE (NEGATIVE)
== END ==
LOC: LAB.R 08:00
PROVIDERS: ATTEND Nurse Practitioner Acute Care
DX: D64.9 Anemia, unspecified (principal)
CPT/HCPCS: 82274